=== PATIENT | male | born 1985 | race Caucasian/White ===

== ENCOUNTER → 2025-04-01 08:43 | Outpatient (BNVA) | payer OTHER, SELFPAY | PROVIDERS: PCP Family Medicine; Visit Provider Family Medicine | DX: K57.90 Diverticulosis of intestine, part unspecified, without perforation or abscess without bleeding (principal); I10 Essential (primary) hypertension | CPT/HCPCS: 80053; 80061; 83036; 84439; 84443; 85025 ==

== ENCOUNTER 2025-04-23 11:24 | Outpatient (CLI) | payer MEDICAID, SELFPAY ==
--- NOTE | 2025-04-23 12:30 | CT_ITS ---
WS: [id number] CT ABDOMEN PELVIS TECHNIQUE: Contrast-enhanced CT of the abdomen and pelvis with coronal and sagittal reformatted images. CLINICAL INFORMATION: diverticulitis COMPARISON: None. DLP: 1409.[address] scans at [facility] use at least one of these dose optimization techniques: automated exposure control; mA and/or kV adjustment per patient size (includes targeted exams where dose is matched to clinical indication); or iterative reconstruction. FINDINGS: Diffuse circumferential thickening of the sigmoid colon with mild surrounding induration compatible with acute diverticulitis. Numerous sigmoid diverticuli. Recommend follow-up to resolution. Hepatomegaly. Fatty liver. Normal GE junction. Adrenal glands are normal. No hydronephrosis in either kidney. 2.1 cm renal cyst upper pole RIGHT kidney. Normal pancreatic parenchymal enhancement. Normal spleen. Adrenal glands are normal. No hydronephrosis in either kidney. Normal portal vein and splenic vein. Tiny fat-containing umbilical hernia. Fat-containing inguinal hernias. Normal appendix in the RIGHT lower quadrant. CT/CT abdomen pelvis w con* [id number] IMPRESSION: 1. Diffuse circumferential thickening of the sigmoid colon with mild surround ing induration compatible with acute diverticulitis. No abscess or fluid collec tion. Recommend follow-up to resolution. 2. Fatty liver. Mild hepatomegaly. 3. 2.1 cm RIGHT renal cyst upper pole.
[2025-04-23] MEDS: iohexol 350 mg/mL 500 mL Btl (per mL) PO (12:37)
[2025-04-23] MEDS: iohexol 350 mg/mL 500 mL Btl (per mL) IV (12:37)
== END 2025-04-23 11:25 | disposition home or self-care (01) ==
LOC: RAD 11:24
PROVIDERS: PCP Family Medicine; Visit Provider Family Medicine
DX: K57.32 Diverticulitis of large intestine without perforation or abscess without bleeding (principal); R10.9 Unspecified abdominal pain; R16.0 Hepatomegaly, not elsewhere classified; K76.0 Fatty (change of) liver, not elsewhere classified; N28.1 Cyst of kidney, acquired
CPT/HCPCS: 74177

== ENCOUNTER 2025-06-22 13:55 | Emergency (ER) | payer MEDICAID, SELFPAY ==
--- OUTSIDE RECORDS SUMMARY | 2025-06-17 05:26 | XMS_ITS | Encounter Summary ---
Author Organization [facility] Address [address] [place] [address] Care Team Providers Care Penciller Name Role Phone Unavailable Primary Care Provider Unavailabl e Reason for Visit * Auth/Cert (Routine) Specialty Diagnoses / Procedures Referred By Teresa t Referred To Contact Perioperative Diagnoses Colovesical fistula Diverticulitis Colovesical fistula; Diverticulitis Procedures MI LAPAROSCOPY COLECTOMY PARTIAL W/ANASTOMOSIS MI LAPS COLECTOMY PRTL W/COLOPXTSTMY LW ANAST MI LAPS COLECTMY PRTL W/COLOPXTSTMY LW ANAST W/CLST SIGMOID COLECTOMY HAND ASSISTED LAPAROSCOPIC SIGMOID COLECTOMY HAND ASSISTED LAPAROSCOPIC SIGMOID COLECTOMY HAND ASSISTED LAPAROSCOPIC Mukul Orozco MD [address] [address] Phone: tel: fax: [facility] Operating Room [address] [place] [address] Phone: tel: fax: Referral ID Status Reason Start Date Expiration Date Visits Re quested Visits Authorized [id number] 1 1 Encounter Details Date Type Department Care Team (Latest Contact Info) Description 06/17/2025 5:26 AM CDT - 06/18/2025 7:09 PM CDT Hospital Encounter [facility] 3B Surgical [address] [place] [address] Mukul Orozco MD [address] [address] Diverticulitis Discharge Disposition: Home or Self Care Social History Tobacco Use Types Packs/Day Years Used Date Smoking Tobacco: Former Cigarettes Smokeless Tobacco: Never Tobacco Cessation:Counseling Given: Not Answered Alcohol Use Standard Drinks/Week Comments Yes 0 (1 standard drink = 0.6 oz pur e alcohol) Rarely Feeling Safe Answer Date Recorded Are you in a relationship wi th someone who hurts you emotionally and/or physically? No 06/17/2025 Food Insecurity Answer Date Recorded Patient needs follow up regardin 06/12/2025 Transportation Needs Answer Date Record ed Patient needs follow up regardin 06/12/2025 Utility Needs Answer Date Recorded Patient needs follow up regardin 06/12/2025 Sex and Gender Information Value Date Recorded Sex Assigned at Not on file Legal Sex Male 1:16 PM CDT Gender Identity Not on file Sexual Orientation Not on file documented as of this encounter Last Filed Vital Signs Vital Sign Reading Time Taken Comments Blood Pressure 150/81 06/18/2025 9:04 AM CDT Pulse 82 06/18/2025 9:04 AM CDT Temperature 36.2 C (97.2 F) 06/18/2025 9:04 AM CDT Respiratory Rate 13 06/18/2025 9:04 AM CDT Oxygen Saturation 95% 06/18/2025 9:04 AM CDT Inhaled Oxygen Concentration - - Weight 145.7 kg (321 lb 3.4 oz) 06/18/2025 4:16 AM CDT Height 175.3 cm (5' 9 ) 06/17/2025 5:44 AM CDT Body Mass Index 47.43 06/17/2025 5:44 AM CDT documented in this encounter Discharge Summaries * Arelis Matt NP - 06/20/2025 9:27 AM CDT Patient: Martínez Chinchilla / 40 y.o. / male : 1985 Admit date: 06/17/2025 Discharge date: 06/18/2025 Final Diagnosis: Chronic diverticulitis with colovesical fistula Secondary diagnoses and conditions treated: Active Hospital Problems Diagnosis s/p lap sigmoid colectomy 06/17/2025 for chronic Diverticulitis with colovesical fistula Colovesical fistula Resolved Hospital Problems No resolved problems to display. Attending Physician: Dr. Mukul Orozco, Colorectal Surgery Procedures Performed: laparoscopic sigmoid resection Hospital Course: The patient was taken to the operating room on the day of admission where he underwent the above procedure, which he tolerated well. Postoperatively he was taken to the PACU and thenthe floor where he recovered uneventfully. he was able to quickly advance his diet, and had his pain well controlled, first on IV pain medication and then transitioned to PO pain medication. At the time of discharge the patient is able to ambulate without assistance, he is voiding urine without difficulty, demonstrating appropriate bowel function, tolerating his diet, and has his pain well controlled with oral pain medication. Discharge Condition: improving. Disposition: home. Discharge medications: Medication List START taking these medications ciprofloxacin HCl 500 mg tablet Commonly known as: Cipro Take 1 Tablet (500 mg) by mouth 2 times daily for 5 days. Signed by: Dr. Cyndi Orozco Quantity: 10 Tablet Refills: 0 HYDROmorphone 2 mg tablet Commonly known as: DILAUDID Take 1 Tablet (2 mg) by mouth every 4 hours as needed for Pain. Max Daily Amount: 12 mg Signed by: Dr. Cyndi Orozco Quantity: 20 Tablet Refills: 0 Narcan 4 mg/actuation Silas, Non-Aerosol EMERGENCY USE ONLY: Administer 1 spray (4 mg) in one nostril one time. May repeat in alternating nostrils every 2-3 min until responsive or EMS arrives. Signed by: Dr. Cyndi Orozco Quantity: 2 Each Refills: 3 Generic drug: naloxone CHANGE how you take these medications metroNIDAZOLE 500 mg tablet Commonly known as: FLAGYL What changed: how much to take how to take this when to take this additional instructions Take 1 Tablet (500 mg) by mouth 3 times daily for 5 days. Signed by: Dr. Cyndi Orozco Quantity: 15 Tablet Refills: 0 CONTINUE taking these medications amLODIPine 10 mg tablet Commonly known as: NORVASC Take 1 Tablet by mouth daily. Refills: 0 CARVEDILOL ORAL Take 12.5 mg by mouth 2 times daily. Refills: 0 cloNIDine HCL 0.1 mg tablet Commonly known as: CATAPRES Take 0.1 mg by mouth 2 times daily as needed for Blood Pressure. Refills: 0 dicyclomine 10 mg capsule Commonly known as: BENTYL Take 1 Capsule (10 mg) by mouth 4 times daily as needed (abdominal pain). Signed by: Dr. Rick Marshall Quantity: 240 Capsule Refills: 3 hydroCHLOROthiazide 25 mg tablet Take 1 Tablet by mouth daily. Refills: 0 lisinopriL 40 mg tablet Commonly known as: PRINIVIL Take 1 Tablet by mouth daily. Refills: 0 ondansetron 4 mg Tablet, Rapid Dissolve Commonly known as: ZOFRAN ODT Take 1 Tablet (4 mg) by mouth every 6 hours as needed for Nausea/Emesis. Dissolve tablet on top of tongue, then swallow with saliva. Signed by: Dr. Cyndi Orozco Quantity: 6 Tablet Refills: 0 STOP taking these medications neomycin 500 mg tablet Commonly known as: MYCIFRADIN sodium, potassium and magnesium SULFATES 17.5-3.13-1.6 gram Recon Soln Commonly known as: Suprep Bowel Prep Kit Where to Get Your Medications These medications were sent to [address] [address] Hours: Tuesday - Tuesday: 7 am - 9 pm; Tuesday - Tuesday: 8 am - 4 pm HYDROmorphone 2 mg tablet Narcan 4 mg/actuation Silas, Non-Aerosol These medications were sent to [address] [address] [address] ciprofloxacin HCl 500 mg tablet metroNIDAZOLE 500 mg tablet Patient instructions: 1. Discharge to home 2. Follow-up [address] Orozco 3. May shower without restrictions. 4. Routine wound care/teach wound care if applicable. 5. Activity no restrictions and no lifting greater than 10 lbs 6. Prescription on chart. Please give to patient. 7. Call if temperature is greater than 101.5, severe pain, nausea, vomiting, wound drainage, questions or concerns. 8. Diet: No restriction. Signed: Arelis Matt NP 06/20/2025, 9:27 AM Cosigned by Mukul Orozco MD at 06/20/2025 9:29 AM CDT documented in this encounter Discharge Instructions * Discharge Instructions* Carter Hassan RN - 06/17/2025 7:54 AM CDT Post-Operative Discharge Instructions If you feel you are experiencing a medical emergency - call 911 or present immediately to the nearest Emergency Department. You will need a cystogram 10 days post op. Someone will contact you to schedule this. Please follow up with RUBY Thompson in 3 weeks, please call her office at to schedule your appointment. Typically follow up appointments are scheduled as in person visits, but if you feel that your appointment could be handled over the phone or by video chat please contact our office and we can make those arrangements. The [employer] jamarcus can also allow you to send inquiries directly to us as well as submit pictures of wounds, etc. Often the jamarcus is the most efficient way to each our healthcare team. Ifyou don't have it already please search your jamarcus store for [employer]. KEEP IN TOUCH WITH [employer] Please consider using [email or web address] to communicate with Dr. Orozco's office. Messages are received in real time by the nurse as fast, or faster, than phone messages, and you may expect a prompt reply. DIET Return to your usual diet. It is normal not to have an appetite right after surgery - as long as you are tolerating liquids and staying hydrated, your desire for solid food will return in a few days. BOWEL FUNCTION Bowel movements should return a day or two after surgery. Pain medication can cause constipation. To avoid abdominal discomfort, take Metamucil 1 TBSP by mouth every day starting two days after surgery if no bowel movement (BM) has occured. If this is not effective, take Milk of Magnesia 1 TBSP every 8 hours until BM occurs. Call if the above does not produce results. ACTIVITY Avoid laying in bed, walk around! - this will help decrease the postoperative discomfort. Do not lift, push, hand assembler for puller over 10 pounds May take a shower or sponge bath, no soaking in a tub, pool or hot tub May return to work/school when you feel like you can adequately and safely do your job - usually about 1 week for most occupations unless heavy strenuous lifting is required. Do not drive while taking pain medication. WHEN TO CALL Dr. Orozco @ If fever > 101.5 F OR shaking chills. If your incisions develop spreading redness, come apart, or begin to drain brown or green fluid. Persistent nausea & vomiting that last more than a few hours and unable to keep liquids down. Bleeding around incision. ( a small amount of thin blood tinged fluid is to be expected) Shortness of breath, leg(s) painful when walking or standing, leg(s) swelling or discolored. Severe constipation. WOUND CARE No special wound care is required It is OK to wash the incision(s) gently with soap and water but do not scrub AFTER HOURS Prescriptions are not refilled after business hours. If you are in need of additional medications, call the office on the next business day at [phone]. There is a physician on-call after hours for emergency reasons only. DO NOT SMOKE AND AVOID SECOND-HAND SMOKE. Tobacco smoke can delay the healing process by decreasingthe oxygen supply to your wound, & may increase your risk of infection. Smoking irritates the breathing passages and increases the risk of pneumonia, bronchitis, asthma and risk of blood clots. * Attachments The following attachments cannot be sent through Care Everywhere. * Bowel Resection: Open: Post op (Nepalese) * Diverticulitis (Nepalese) * Hydromorphone (Nepalese) documented in this encounter Medications at Time of Discharge HYDROmorphone (DILAUDID) 2 mg tabletIndication s:Diverticulitis Take 1 Tablet (2 mg) by mouth every 4 hours as needed for Pain. Max Daily Amount: 12 mg 20 Tablet 06/18/2025 6:53 PM CDT 06/18/2025 naloxone (NARCAN) 4 mg/spray Silas, Non-Aerosol EMERGENCY USE ONLY: Administer 1 spray (4 mg) in one nostril one time. May repeat in alternating nostrils every 2-3 min until responsive or EMS arrives. 2 Each 3 06/18/2025 6:53 PM CDT 06/18/2025 ciprofloxacin HCl (Cipro) 500 mg tablet Take 1 Tablet (500 mg) by mouth 2 times daily for 5 days. 10 Tablet 06/18/2025 5 metroNIDAZOLE (FLAGYL) 500 mg tablet Take 1 Tablet (500 mg) by mouth 3 times daily for 5 days. 15 Tablet 06/18/2025 5 ondansetron (ZOFRAN ODT) 4 mg Tablet, Rapid Dissolve Take 1 Tablet (4 mg) by mouth every 6 hours as needed for Nausea/Emesis. Dissolve tablet on top of tongue, then swallow with saliva. 6 Tablet 06/06/2025 amLODIPine (NORVASC) 10 mg tablet Take 1 Tablet by mouth daily. 04/30/2025 hydroCHLOROthiaz sushila 25 mg tablet Take 1 Tablet by mouth daily. 04/01/2025 lisinopriL (PRINIVIL) 40 mg tablet Take 1 Tablet by mouth daily. 04/30/2025 CARVEDILOL ORAL Take 12.5 mg by mouth 2 times daily. dicyclomine (BENTYL) 10 mg capsule Take 1 Capsule (10 mg) by mouth 4 times daily as needed (abdominal pain). 240 Capsule 3 05/06/2025 cloNIDine HCL (CATAPRES) 0.1 mg tablet Take 0.1 mg by mouth 2 times daily as needed for Blood Pressure. documented as of this encounter Progress Notes * Carter Hassan RN - 06/18/2025 6:49 PM CDT Martínez Chinchilla will be discharged via wheelchair to home. Martínez Chinchilla is accompanied by spouse and will be transported via private vehicle. Went over all discharge teaching, kline care, dressing changes where ARINA drain was, and all questions answered at this time. * Mukul Orozco MD - 06/18/2025 6:32 AM CDT Colon & Rectal Surgery Patient seen and examined. No complaints. VS stable, I/O ok Soft, appropriately tender, ND, wound ok A/P Doing well POD#1 -Discussed operative findings, -OOB, ambulate, -Regular diet, Follow ERAS protocol, keep kline for procedure Current hospital problem list: Active Hospital Problems Diagnosis s/p lap sigmoid colectomy 06/17/2025 for chronic Diverticulitis with colovesical fistula Colovesical fistula Resolved Hospital Problems No resolved problems to display. Mukul Orozco M.D. Colon & Rectal Surgery Office: * Hailee Azar PHARMACIST - 06/17/2025 3:05 PM CDT Pharmacy Anticoagulation Monitoring Service - Clinical Pharmacy Initial Note A/P- Martínez Chinchilla is a 40 y.o. male being treated with enoxaparin for DVT prophylaxis. We have changed therapy from enoxaparin 40 mg SQ every 24 hours to enoxaparin 70 mg SQ every 24 hours perfacility anticoagulation protocol for body weight > 100 kg (dose = 0.5 mg/kg/dose) and BMI >/- 40 kg/m2. Pharmacy will follow-up with the scheduling of labs as described in the anticoagulant mon itoring protocol (if not already ordered) which has been cosigned and is available for review in the progress notes section of this chart. Pharmacy will leave follow-up notes for prophylactic anticoagulation only if dosage adjustments are made. Ht Readings from Last 1 Encounters: 06/17/25 5' 9 (1.753 m) Wt Readings from Last 1 Encounters: 06/17/25 (!) 146 kg (321 lb 12.8 oz) Lab Results Component Value Date HGB 15.4 06/17/2025 HCT 44.3 06/17/2025 WBC 12.7 (H) 06/17/2025 PLT 288 06/17/2025 CREAT 1.06 06/17/2025 Thank you for involving us in the care of this patient. SHANNAN Hector * Hailee Azar PHARMACIST - 06/17/2025 3:05 PM CDT RX ANTICOAG MONITORING ORDERS Pharmacy to order, review, and report clinically significant changes in lab per [facility] Anticoagulation Protocol as follows: Orders for dosing changes and follow-up labs will be signed ???Per Protocol?? in Epic. The name ofthe provider signed on the follow-up orders for cosignature will be assigned as follows: Orders placed by members of the Guard Captain or Hospitalist physician groups: If the original ordering provider is no longer the attending physician for the patient, responsibility for cosignature of the follow-up medication orders and labs will transfer from the original ordering provider to the current attending physician. Orders placed by any other provider: Responsibility for cosignature of the follow-up medication orders and labs will remain with the original ordering provider of the anticoagulant order. Pharmacy will order appropriate labs as indicated by the [facility] Anticoagulation Monitoring policy located on [facility] intranet, unless already ordered. The medications that will be monitored include (but are not limited to): Low molecular weight heparin, heparin, and fondaparinux Direct Thrombin Inhibiors (argatroban, bivalirudin dabigatran lepirudin) Warfarin Direct oral anticoagulants (rivaroxaban, apixaban, edoxaban) Pharmacy will order labs for patients not on a heparin protocol, warfarin protocol, or anticoagulant protocol. Nursing to order labs required as indicated by those protocols. This policy is in compliance with the JCAHO National Patient Safety Goal 3E and authorized by the [facility] Pharmacy and Therapeutics Committee. Cosigned by Mukul Orozco MD at 06/17/2025 4:06 PM CDT documented in this encounter H&P Notes * Mukul Orozco MD - 06/17/2025 6:21 AM CDT I have reviewed the last H&P and examined the patient today and there are no changes. documented in this encounter OR Notes * Operative Report - Mukul Orozco MD - 06/17/2025 10:46 AM CDT Preoperative diagnosis: Chronic diverticulitis with colovesical fistula Postoperative diagnosis: same Procedure(s) performed: 1. Laparoscopic sigmoid resection with end-to-end double-stapled anastomosis 2. Laparoscopic complete mobilization of the splenic flexure 3. Rigid proctoscopy Surgeon: Mukul Orozco M.D. Comic Writer: RUBY Thompson FOOD BAGGING MACHINE OPERATOR JUSTIFICATION: The use of an advanced physician practice administrator was required due to the complexity of the procedure and lack of similarly qualified assistants. Comic Writer tasks include: Positioning, prepping & draping, retraction, general surgical assistance including tying, suturing, suction, etc, wound closure and dressing application, EEA stapler operation, and camera operation Anesthesia: General endotracheal anesthesia EBL: 150ml Specimens: sigmoid colon Findings: marked chronic diverticulitis with adherence to the posterior bladder, distinct tract notidentified. This procedure is considered infected at the time of surgery by the attending physician. Level(s) considered infected: peritoneal cavity Other features of infection observed: Phlegmon Details of procedure: After obtaining informed consent the patient was taken to the operating room,placed in a supine position and then underwent induction of general anesthesia. he received antibiotics preoperatively and then was positioned in a low modified lithotomy position with the right arm tucked. All pressure points were well padded. A kline catheter was placed and the abdomen was prepped and draped in standard, sterile surgical fashion. An 8cm lower midline incision was created with a skin knife and electrocautery was used to dissect down to the fascia which was carefully opened. With one hand inside the abdomen to provide a guide and backdrop and additional 5mm port was placed in the supraumbilical position. The hand port was placed in the lower incision and a 5mm 30 degree camera was inserted into the abdomen. The abdomen was inspected and findings as above were encountered. An additional 5mm working port was placed under direct vision in the left lower quadrant. The sigmoid colon was grasped through the hand port and retracted laterally. The white line of Toldt was incised along its length toward the spleen. The lateral attachments of the colon were taken down with a combination of Ligasure and blunt dissection. I then changed focus to the transverse colonand entered the lesser sack in the plane between the greater omentum and the colon. This plane was developed towards the splenic flexure., completely mobilizing the flexure and left colon. Attention was then turned toward the sigmoid colon. Lateral attachments of sigmoid were carefully dissected off the pelvic sidewall. The left ureter was identified and carefully preserved. The mesentery of the left colon was then divided. The ANDREEA and IMV were divided with the LigaSure and then an endoloop was placed over the stalks. The peritoneum overlying the lateral aspects of the distal sigmoid and upper rectum were incised with electrocautery and LigaSure parallel to the bowel. The upper rectum, identified by the absence of tinea coli was identified. The mesorectum at this point was dissected bluntly off the bowel and the mesorectum was divided with judicious use of Ligasure and ties where appropriate. The bowel was then transected at the top of the rectum using a green load in a 35mm curvilinear stapler. The pelvis was observed and irrigated and found to be hemostatic The proximal resection margin was chosen at an area in the descending/proximal sigmoid which would reach without tension to the top of the rectum, had and excellent blood supply, and was clear of inflammatory changes. The bowel was divided and the specimen passed off the field. A 2-0 proline pursestring was placed and the anvil of a 31 mm EEA stapler was passed, per anus to the proximal end of the rectal stump. The spike was advanced at the center of the staple line and coupled with the anvil. The bowel was checked for twisting and was found to be appropriately positioned. The stapler was then closed and fired, resulting in two complete tissue rings. A proctoscope was then inserted per anusand the rectum and colon was insulated while submerged in saline. No leak was observed during the air test. Rigid proctoscopy identified an intact, hemostatic anastomosis. Feeling comfortable with a tension free, well vascularized anastomosis we elected to close. The abdomen was then irrigated, the laparoscopic port sites were removed and the operative field was examined, and hemostasis was confirmed. The fascia was closed with running #1 PDS suture and the wounds were then irrigated. The skin was closed with running 4-0 vycril and sealed with Dermabond. The patient tolerated the procedure well and all sponge and instrument counts were correct at the conclusion. Signed: Mukul Orozco M.D. documented in this encounter Miscellaneous Notes * Care Plan - Carter Hassan RN - 06/18/2025 5:37 PM CDT Shift Summary Pain management interventions with oxyCODONE and HYDROmorphone resulted in marked improvement in comfort levels. No evidence of infection or complications at drain and catheter sites, with stable output and appearance documented. Safety measures were maintained throughout the shift, with no falls or injuries reported and independent mobility observed. All scheduled and PRN medications except cloNIDine HCL were administered as ordered, with one refusal documented. Overall, comfort improved and safety was maintained during the shift. Verbalizes/displays acceptable comfort level or baseline comfort level: Pain at rest decreased steadily from 7 to 1 over the shift, with relief verbalized after administration of oxyCODONE and HYDROmorphone; pain with activity also decreased from 8 to 3 after interventions. Infection Risk/Actual: Infection prevention, control, or resolution by discharge: No abnormal findings noted at drain and catheter sites, with clean, dry dressings and clear, straw-colored urine; no complaints or changes in tolerance documented. Safety/Fall: Absence of fall, injury, harm during hospitalization: No falls or injuries occurred, and safety checks were completed with independent mobility and no assistive devices required. * Care Plan - Nica Velez RN - 06/18/2025 3:42 PM CDT Problem: Discharge Planning Goal: Identify discharge needs upon admission and through discharge Description: Clinical documentation reviewed. Cm spoke with pt and at bedside, states he has a PCP Dr Carreno at [place]. States he does not need HHC at [place]. Plans to DC home with when medically ready. Cm will follow for DC needs. Comprehensive Discharge Planning Risk Assessment was completed. Documentation Related to CDPA score CDPA Documentation Ambulation: independent Transferring: independent Toileting: independent Bathing: independent Dressing: independent Eating: independent Communication: understands/communicates w/o difficulty Weight-Bearing Status: no weight-bearing restrictions Living Arrangements: Lives with spouse/significant other Total Score of 9 or below does not identify immediate needs for discharge. CDPA Risk Score Total Score: 0 Criteria that do not apply: Self-reported walking limitation Disability Age Prior Living Status Please place consult if needs for discharge are identified. Care Management will continue to follow for discharge planning. Outcome: Progressing documented in this encounter Plan of Treatment Upcoming Encounters Date Type Department Care Team (Late st Contact Info) Description 07/03/2025 7:30 AM CDT Appointment [facility] Imaging Services [address] [place] [address] Arelis Matt NP [address] [address] Zoie Giles FNP [address] [place] [address] 07/12/2025 9:45 AM CDT Office Visit [facility] Gen Spec Surg [address] [id number] Arelis Matt NP [address] [id number] documented as of this encounter Procedures Procedure Name Priority Date/Time Associated Diagnosis Comments TELEMETRY REPORT 06/19/2025 2:31 PM CDT CBC WITH DIFFERENTIAL Routine 06/18/2025 4:37 AM CDT BASIC METABOLIC PANEL Routine 06/18/2025 4:37 AM CDT POC GLUCOSE Routine 06/17/2025 9:37 AM CDT PATHOLOGY Pathology 06/17/2025 8:31 AM CDT Colovesical fistula Diverticulitis MI ANRCT XM SURG REQ ANES GENERAL SPI/EDRL DX 06/17/2025 7:20 AM CDT Colovesical fistula Diverticulitis MI LAPS MOBLJ SPLENIC FLXR PFRMD W/PRTL COLECTOMY 06/17/2025 7:20 AM CDT Colovesical fistula Diverticulitis MI LAPS COLECTMY PRTL W/COLOPXTSTMY LW ANAST W/CLST 06/17/2025 7:20 AM CDT Colovesical fistula Diverticulitis MI LAPS COLECTOMY PRTL W/COLOPXTSTMY LW ANAST 06/17/2025 7:20 AM CDT Colovesical fistula Diverticulitis MI LAPAROSCOPY COLECTOMY PARTIAL W/ANASTOMOSIS 06/17/2025 7:20 AM CDT Colovesical fistula Diverticulitis CBC WITHOUT DIFFERENTIAL Stat 06/17/2025 6:16 AM CDT BASIC METABOLIC PANEL Routine 06/17/2025 6:16 AM CDT TYPE AND SCREEN Stat 06/17/2025 6:12 AM CDT VERIFICATION BLOOD GROUP Stat 06/17/2025 6:08 AM CDT documented in this encounter Results * TELEMETRY REPORT (06/19/2025 2:31 PM CDT) us Provider Scanning ECG ORDERABLES Final Result * (ABNORMAL) BASIC METABOLIC PANEL (06/18/2025 4:37 AM CDT) SODIUM 136 136 - 145 mmol/L 06/18/2025 6:01 AM CDT [facility] POTASSIUM 4.2 3.5 - 5.1 mmol/L 06/18/2025 6:01 AM CDT [facility] CHLORIDE 101 98 - 107 mmol/L 06/18/2025 6:01 AM [facility] CO2 26 22 - 29 mmol/L 06/18/2025 6:01 AM [facility] CALCIUM 8.1(L) 8.6 - 10.0 mg/dL 06/18/2025 6:01 AM T [facility] BUN 13 6 - 20 mg/dL 06/18/2025 6:01 AM [facility] CREATININE 0.93 0.67 - 1.17 mg/dL 06/18/2025 6:01 AM [facility] GLUCOSE 186(H) 74 - 99 mg/dL 06/18/2025 6:01 AM [facility] GFR >60 >=60 mL/min/1.7 3 sq meter 06/18/2025 6:01 AM [facility] Comment:eGFR calculated with 2020 CKD-EPI equation. Vegetarian diet, extremely high or low muscle mass, and may affect results. Cystatin C with Glomerular Filtration Rate is a suitable alternative for these patients. ANION GAP 9 9 - 20 mmol/L 06/18/2025 6:01 AM [facility] Blood Venipuncture / Unknown 06/18/2025 4:37 AM CDT 06/18/2025 5:24 AM CDT us Mukul Orozco MD CHEMISTRY ORDERABLES Final Resu lt [facility] CLIA # [id number] [address] [place] [address] * (ABNORMAL) CBC WITH DIFFERENTIAL (06/18/2025 4:37 AM CDT) WBC 11.1(H) 4.5 - 11.0 K/uL 06/18/2025 5:55 AM CDT [facility] RBC 4.88 4.60 - 6.20 M/uL 06/18/2025 5:55 AM [facility] HEMOGLOBIN 14.2 14.0 - 18.0 g/dL 06/18/2025 5:55 AM [facility] HEMATOCRIT 41.8 41.0 - 53.0 % 06/18/2025 5:55 AM [facility] MCV 85.7 84.0 - 103.0 fL 06/18/2025 5:55 AM [facility] MCH 29.1 27.0 - 34.0 pg 06/18/2025 5:55 AM [facility] MCHC 34.0 30.0 - 35.0 g/dL 06/18/2025 5:55 AM [facility] PLATELETS 244 140 - 440 K/uL 06/18/2025 5:55 AM [facility] MPV 9.4 8.9 - 12.8 fL 06/18/2025 5:55 AM [facility] RDW 13.4 11.0 - 14.5 % 06/18/2025 5:55 AM [facility] RDW-STDEV 41.8 37.0 - 54.0 fL 06/18/2025 5:55 AM [facility] NEUTROPHILS 69 42 - 75 % 06/18/2025 5:55 AM [facility] LYMPHOCYTES 20(L) 24 - 44 % 06/18/2025 5:55 AM [facility] MONOCYTES 9 2 - 10 % 06/18/2025 5:55 AM [facility] EOSINOPHILS 2 0 - 7 % 06/18/2025 5:55 AM [facility] BASOPHILS 0 0 - 1 % 06/18/2025 5:55 AM [facility] IMMATURE GRANULOCYTES 0 0 - 2 % 06/18/2025 5:55 AM [facility] NEUTROPHIL ABSOLUTE 7.66 2.00 - 8.00 K/uL 06/18/2025 5:55 AM [facility] LYMPHOCYTE ABSOLUTE 2.22 1.20 - 4.00 K/uL 06/18/2025 5:55 AM CDT [facility] MONOCYTE ABSOLUTE 0.95(H) 0.10 - 0.60 K/uL 06/18/2025 5:55 AM CDT [facility] EOSINOPHIL ABSOLUTE 0.20 0.00 - 0.70 K/uL 06/18/2025 5:55 AM CDT [facility] BASOPHILS ABSOLUTE 0.05 0.00 - 0.20 K/uL 06/18/2025 5:55 AM CDT [facility] IMMATURE GRANULOCYTES ABSOLUTE 0.05 0.00 - 0.10 K/uL 06/18/2025 5:55 AM CDT [facility] SMEAR REVIEWED: NN - No Action Needed 06/18/2025 5:55 AM CDT [facility] Blood Venipuncture / Unknown 06/18/2025 4:37 AM CDT 06/18/2025 5:25 AM CDT Mukul Orozco MD HEMATOLOGY ORDERABLES Final Res ult [facility] CLIA # [id number] [address] [address] * (ABNORMAL) POC GLUCOSE (06/17/2025 9:37 AM CDT) GLUCOSE POC 127(H) 74 - 99 mg/dL 06/17/2025 9:37 AM CDT [facility] SPECIMEN SOURCE, GLUCOSE POC Capillary 06/17/2025 9:37 AM CDT [facility] Blood, whole 06/17/2025 9:37 AM CDT 06/17/2025 9:45 AM CDT Mukul Orozco MD POINT OF CARE TESTING Final Res ult [facility] CLIA # [id number] [address] [place] [id number] * PATHOLOGY (06/17/2025 8:31 AM CDT) CASE REPORT Surgical Pathology Report Case: [id number] Authorizing Provider: Mukul Orozco MD Collected: 06/17/2025 08:31 AM Ordering Location: [facility] Received: 06/17/2025 10:09 AM Operating Room Pathologist: Cristian Thompson MD Specimen: Colon, sigmoid 2:05 PM CDT [facility] FINAL DIAGNOSIS A. Sigmoid colon, segmental resection - Diverticular disease with perforated acute diverticulitis and mural abscess - Viable resection margins - 2 benign lymph nodes Cristian Thompson MD [id number] 2:05 PM CDT [facility] at 1405 CDT GROSS DESCRIPTION A. Received in a container of formalin labeled Amor -sigmoid colon is a 34 cm in length by 4.4 cm in diameter segment of sigmoid colon/proximal rectum. At the rectosigmoid junction is an approximately 8 cm in greatest dimension area of dense adhesions and tortuous bowel. The remaining serosa is oakes-pink, smooth and glistening. Opening reveals a strictured lumen correlating with the previously described rectosigmoid junction. The mucosa is diffusely oakes-pink, smooth and glistening with grossly unremarkable mucosal folds and is serially sectioned to reveal a 2.0 cm in greatest dimension perforated diverticulum within the area of serosal adhesions. There is significant submucosal inflammatory debris and a diffusely thickened bowel wall. No discrete masses or polyps are identified. The pericolonic fat contains 2 identifiable enlarged lymph nodes. Product Steward sections are submitted as follows: A1-proximal margin, en face A2-distal margin, en face B2-E7-ejid-thickness cross-section of perforated diverticulum, bisected (bisected point inked blue) A5-thickened bowel wall with abscess A6-enlarged lymph nodes, 2 Grossed by: Arelis Cornejo MS, PA (ASCP) 2:05 PM CDT [facility] OPERATIVE PROCEDURE 1: SIGMOID COLECTOMY HAND ASSISTED LAPAROSCOPIC 2: SPLENIC FLEXURE MOBILIZATION LAPAROSCOPIC 3: PROCTOSCOPY 5 2:05 PM CDT [facility] CLINICAL INFORMATION Colovesical fistula; Diverticulitis N32.1-Colovesical fistula K57.92-Diverticulitis 5 2:05 PM CDT [facility] COMMENT The [employer] voice-activated dictation system may have been used in the creation of this report. Inherent to this system is the possibility of errors in syntax, grammar, punctuation, or other areas that could impact interpretation. If there are interpretive questions about the report, please contact the performing pathologist. Unless gross only is specified in the diagnosis, the microscopic examination substantiates the above cited diagnosis. The performance characteristics of all immunohistochemical stains cited in this report (if any) were determined by the Diagnostic Immunohist[facility] Laboratory of [facility] in compliance with CLIA'88 regulations. Some of these tests rely on the use of analyte specific reagents and are subject to specific labeling requirements by the FDA. All controls show appropriate reactivity. This testing was developed by the [facility]ohist[facility] Laboratory of [facility]. It has not been cleared or approved by the FDA. The FDA has determined that such clearance or approval is not necessary. 2:05 PM CDT [facility] Tissue SIGMOID COLON STRUCTURE / Unknown Collection / Unknown 06/17/2025 8:31 AM CDT 06/17/2025 10:09 AM CDT Mukul Orozco MD PATHOLOGY/CYTOLOGY ORDERABLES F inal Result [facility] CLIA # [id number] [address] [place] [address] * (ABNORMAL) BASIC METABOLIC PANEL (06/17/2025 6:16 AM CDT) SODIUM 137 136 - 145 mmol/L 06/17/2025 6:55 AM CDT [facility] POTASSIUM 3.8 3.5 - 5.1 mmol/L 06/17/2025 6:55 AM CDT [facility] CHLORIDE 101 98 - 107 mmol/L 06/17/2025 6:55 AM T [facility] CO2 24 22 - 29 mmol/L 06/17/2025 6:55 AM CDT [facility] CALCIUM 9.0 8.6 - 10.0 mg/dL 06/17/2025 6:55 AM T [facility] BUN 17 6 - 20 mg/dL 06/17/2025 6:55 AM T [facility] CREATININE 1.06 0.67 - 1.17 mg/dL 06/17/2025 6:55 AM T [facility] GLUCOSE 119(H) 74 - 99 mg/dL 06/17/2025 6:55 AM T [facility] GFR >60 >=60 mL/min/1.7 3 sq meter 06/17/2025 6:55 AM T [facility] Comment:eGFR calculated with 2020 CKD-EPI equation. Vegetarian diet, extremely high or low muscle mass, and may affect results. Cystatin C with Glomerular Filtration Rate is a suitable alternative for these patients. ANION GAP 12 9 - 20 mmol/L 06/17/2025 6:55 AM T [facility] Blood Venipuncture / Unknown 06/17/2025 6:16 AM CDT 06/17/2025 6:23 AM CDT us Mukul Orozco MD CHEMISTRY ORDERABLES Final Resu lt [facility] CLIA # [id number] [address] [place] [address] [place] [address] * (ABNORMAL) CBC WITHOUT DIFFERENTIAL (06/17/2025 6:16 AM CDT) WBC 12.7(H) 4.5 - 11.0 K/uL 06/17/2025 6:40 AM [facility] RBC 5.24 4.60 - 6.20 M/uL 06/17/2025 6:40 AM T [facility] HEMOGLOBIN 15.4 14.0 - 18.0 g/dL 06/17/2025 6:40 AM T [facility] HEMATOCRIT 44.3 41.0 - 53.0 % 06/17/2025 6:40 AM T [facility] MCV 84.5 84.0 - 103.0 fL 06/17/2025 6:40 AM T [facility] MCH 29.4 27.0 - 34.0 pg 06/17/2025 6:40 AM [facility] MCHC 34.8 30.0 - 35.0 g/dL 06/17/2025 6:40 AM [facility] PLATELETS 288 140 - 440 K/uL 06/17/2025 6:40 AM [facility] MPV 8.6(L) 8.9 - 12.8 fL 06/17/2025 6:40 AM [facility] RDW 13.4 11.0 - 14.5 % 06/17/2025 6:40 AM [facility] RDW-STDEV 41.5 37.0 - 54.0 fL 06/17/2025 6:40 AM [facility] Blood Venipuncture / Unknown 06/17/2025 6:16 AM CDT 06/17/2025 6:23 AM CDT us Mukul Orozco MD HEMATOLOGY ORDERABLES Final Res ult [facility] CLIA # [id number] [address] [place] [address] [place] [address] * TYPE AND SCREEN (06/17/2025 6:12 AM CDT) ABO GROUP A 06/17/2025 7:13 AM [facility] TYPE Negative 06/17/2025 7:13 AM CDT [facility] ANTIBODY SCREEN Negative 06/17/2025 7:13 AM CDT [facility] Blood Venipuncture / Unknown 06/17/2025 6:12 AM CDT 06/17/2025 6:20 AM CDT Mukul Orozco MD BLOOD BANK ORDERABLES Edited Re sult - Final Performing Organization Address City/[facility]/ZIP Co de Phone Number [facility] CLIA#[id number] [address] [place] [address], * VERIFICATION BLOOD GROUP (06/17/2025 6:08 AM CDT) ABO GROUP A 06/17/2025 7:09 AM CDT [facility] RH (D) TYPE Negative 06/17/2025 7:09 AM CDT [facility] [place] Blood Venipuncture / Unknown 06/17/2025 6:08 AM CDT 06/17/2025 6:14 AM CDT us Mukul Orozco MD BLOOD BANK ORDERABLES Final Res ult Performing Organization Address [facility] Co de Phone Number [facility] [place] CLIA#[id number] [address] [place] [address], documented in this encounter Visit Diagnoses Diagnosis s/p lap sigmoid colectomy 06/17/2025 for chronic Diverticulitis with colovesical fistula- Primary Diverticulitis of colon (without mention of hemorrhage) Colovesical fistula Intestinovesical fistula s/p lap sigmoid colectomy 06/17/2025 for chronic Diverticulitis with colovesical fistula Diverticulitis of colon (without mention of hemorrhage) Colovesical fistula Intestinovesical fistula documented in this encounter Admitting Diagnoses Diagnosis Diverticulitis Diverticulitis of colon (without mention of hemorrhage) Colovesical fistula Intestinovesical fistula documented in this encounter Administered Medications Inactive Administered Medications - up to 3 most recent administrations Medication Order MAR Action Action Date Dose Rate Site acetaminophen (TYLENOL) tablet 1,000 mg 1,000 mg, Oral, PRE-PROCEDURE ONCE, 1 dose, Starting on Tue06/17/25 at 0534, Until Tue06/17/25 at 0615, Routine, Pre-opIndications:Colovesical fistula,Diverticulitis Given 06/17/2025 6:15 AM CDT 1,000 mg acetaminophen (TYLENOL) tablet 650 mg 650 mg, Oral, EVERY 6 HOURS, First dose on Tue06/17/25 at 1800, Until Discontinued, Routine, Post-op - Floor Given 06/18/2025 12:19 PM CDT 650 mg Given 06/18/2025 5:59 AM CDT 650 mg Given 06/18/2025 12:09 AM CDT 650 mg alvimopan (ENTEREG) capsule 12 mg 12 mg, Oral, PRE-PROCEDURE ONCE, 1 dose, Starting on Tue06/17/25 at 0534, Until Tue06/17/25 at 0616, Routine, Pre-op, The ordering provider acknowledges review of the [employer] education on the benefits and risks of alvimopan? (see reference links above): YesIndications:Colovesical fistula,Diverticulitis Given 06/17/2025 6:16 AM CDT 12 mg alvimopan (ENTEREG) capsule 12 mg 12 mg, Oral, TWO TIMES DAILY, 14 doses, First dose on Tue06/18/25 at 0900, Last dose on Tue06/24/25 at 2100, Routine, Post-op - Floor, The ordering provider acknowledges review of the [employer] education on the benefits and risks of alvimopan? (see reference links above): Yes Given 06/18/2025 10:15 AM CDT 12 mg amLODIPine (NORVASC) tablet 10 mg 10 mg, Oral, DAILY, First dose on Tue06/17/25 at 1500, Until Discontinued, Routine, Previous Med: amLODIPine (NORVASC) 10 mg tablet - Orig Sig - Take 1 Tablet by mouth daily. Given 06/18/2025 10:13 AM CDT 10 mg Given 06/17/2025 3:03 PM CDT 10 mg carvediloL (COREG) tablet 12.5 mg 12.5 mg, Oral, TWO TIMES DAILY, First dose on Tue06/17/25 at 2100, Until Discontinued, Previous Med: CARVEDILOL ORAL - Orig Sig - Take 12.5 mg by mouth 2 times daily. Given 06/18/2025 10:15 AM CDT 12.5 m g Given 06/17/2025 9:42 PM CDT 12.5 mg celecoxib (CeleBREX) capsule 200 mg 200 mg, Oral, PRE-PROCEDURE ONCE, 1 dose, Starting on Tue06/17/25 at 0534, Until Tue06/17/25 at 0615, Routine, Pre-opIndications:Colovesical fistula,Diverticulitis Given 06/17/2025 6:15 AM CDT 200 mg cloNIDine HCL (CATAPRES) tablet 0.1 mg 0.1 mg, Oral, TWO TIMES DAILY, First dose on Tue06/17/25 at 2100, Until Discontinued, Routine, Previous Med: cloNIDine HCL (CATAPRES) 0.1 mg tablet - Orig Sig - Take 0.1 mg by mouth 2 times daily as needed for Blood Pressure. Given 06/17/2025 9:42 PM CDT 0.1 mg diphenhydrAMINE (BENADRYL) injection 12.5 mg 12.5 mg, IV, POST-PROCEDURE ONCE PRN, 1 dose, Starting on Tue06/17/25 at 0717, Until Tue06/17/25 at 1011, Nausea/Emesis, Routine, PACU Given 06/17/2025 10:11 AM CDT 12.5 mg enoxaparin (LOVENOX) injection 70 mg 70 mg (rounded from 73 mg = 0.5 mg/kg 146 kg), subCUT, DAILY, First dose on Tue06/18/25 at 0600, Until Discontinued, Routine, Indication: Prophylaxis of VTE Given 06/18/2025 5:59 AM CDT 70 mg Abdominal Tissue fentaNYL PF (SUBLIMAZE) 50 mcg/mL injection 50 mcg 50 mcg, IV, POST-PROCEDURE Q 3 MINUTES PRN, 5 doses, Starting on Tue06/17/25 at 0717, Until Tue06/17/25 at 1436, Pain, Mild, Pain, Moderate, Routine, PACU Given 06/17/2025 10:36 AM CDT 50 mcg Given 06/17/2025 10:12 AM CDT 50 mcg Given 06/17/2025 9:34 AM CDT 50 mcg hydroCHLOROthiazide tablet 25 mg 25 mg, Oral, DAILY, First dose on Tue06/17/25 at 1500, Until Discontinued, Routine, Previous Med: hydroCHLOROthiazide 25 mg tablet - Orig Sig - Take 1 Tablet by mouth daily. Given 06/18/2025 10:13 AM CDT 25 mg Given 06/17/2025 3:03 PM CDT 25 mg HYDROmorphone (DILAUDID) tablet 2 mg 2 mg, Oral, EVERY 4 HOURS PRN, Starting on Tue06/18/25 at 1302, Until Tue06/18/25 at 2110, Pain (See admin instructions), Routine Given 06/18/2025 6:03 PM CDT 2 mg Given 06/18/2025 1:18 PM CDT 2 mg HYDROmorphone (PF) (DILAUDID) injection 0.5 mg 0.5 mg, IV, POST-PROCEDURE Q 5 MINUTES PRN, 5 doses, Starting on Tue06/17/25 at 0717, Until Tue06/17/25 at 1018, Pain, Severe, Routine, PACU Given 06/17/2025 10:18 AM CDT 0.5 mg Given 06/17/2025 10:07 AM CDT 0.5 mg Given 06/17/2025 9:59 AM CDT 0.5 mg HYDROmorphone (PF) (DILAUDID) injection 0.5 mg 0.5 mg, IV, POST-PROCEDURE Q 5 MINUTES PRN, 3 doses, Starting on Tue06/17/25 at 1119, Until Tue06/17/25 at 1436, Pain (See admin instructions), Routine Given 06/17/2025 1:26 PM CDT 0.5 mg Given 06/17/2025 11:22 AM CDT 0.5 mg HYDROmorphone (PF) (DILAUDID) injection 1 mg 1 mg, IV, EVERY 2 HOURS PRN, Starting on Tue06/17/25 at 1448, Until Tue06/18/25 at 2110, Pain (See admin instructions), Routine, Post-op - Floor Given 06/18/2025 12:09 AM CDT 1 mg Given 06/17/2025 5:44 PM CDT 1 mg ketorolac (TORADOL) injection 10 mg 10 mg, IV, EVERY 6 HOURS, 8 doses, First dose on Tue06/18/25 at 0645, Last dose on Dottie 06/20/25 at 0000, Routine Given 06/18/2025 7:58 AM CDT 10 mg lactated ringers infusion IV, at 100 mL/hr, CONTINUOUS, Starting on Tue06/17/25 at 0545, Until Tue06/17/25 at 1448, Routine, Pre-op Continue from Pre-Op 06/17/2025 7:20 AM CDT 100 mL/hr New Bag 06/17/2025 6:54 AM CDT 100 mL/hr lactated ringers infusion IV, at 125 mL/hr, POST-PROCEDURE CONTINUOUS, Starting on Tue06/17/25 at 0730, Until Tue06/18/25 at 1302, Routine, PACU [facility] 06/17/2025 10:15 AM CDT 125 mL/hr lisinopriL (PRINIVIL) tablet 40 mg 40 mg, Oral, DAILY, First dose on Tue06/17/25 at 1500, Until Discontinued, Routine, Previous Med: lisinopriL (PRINIVIL) 40 mg tablet - Orig Sig - Take 1 Tablet by mouth daily. Given 06/18/2025 10:13 AM CDT 40 mg Given 06/17/2025 3:03 PM CDT 40 mg magnesium OXIDE (MAG-OX) tablet 400 mg 400 mg, Oral, DAILY, First dose on Tue06/17/25 at 1500, Until Discontinued, Routine, Post-op - Floor Given 06/18/2025 10:15 AM CDT 400 mg Given 06/17/2025 3:03 PM CDT 400 mg metroNIDAZOLE (FLAGYL) IVPB 500 mg 500 mg, IV, PRE-PROCEDURE ONCE, 1 dose, Starting on Tue06/17/25 at 0534, Until Tue06/17/25 at 0725, Routine, Pre-op, Antibiotic Indication: Surgical prophylaxisIndications:Colovesical fistula,Diverticulitis [facility] 06/17/2025 6:55 AM CDT 500 mg 200 mL/h r naloxone (NARCAN) 0.4 mg/mL injection 0.1-0.4 mg 0.1-0.4 mg, IV, SEE ADMIN INSTRUCTIONS, Starting on Tue06/17/25 at 0717, Until Tue06/18/25 at 2110, Routine, PACU oxyCODONE (ROXICODONE) tablet 10 mg 10 mg, Oral, EVERY 4 HOURS PRN, Starting on Tue06/18/25 at 0633, Until Tue06/18/25 at 1302, Pain (See admin instructions), Routine, Post-op - Floor Given 06/18/2025 10:20 AM CDT 10 mg oxyCODONE (ROXICODONE) tablet 5 mg 5 mg, Oral, EVERY 4 HOURS PRN, Starting on Tue06/17/25 at 1448, Until Tue06/18/25 at 0633, Pain (See admin instructions), Routine, Post-op - Floor Given 06/17/2025 9:42 PM CDT 5 mg Given 06/17/2025 3:03 PM CDT 5 mg potassium CHLORIDE 20 mEq in dextrose 5 % - sodium chloride 0.45 % 1,000 mL infusion IV, at 40 mL/hr, CONTINUOUS, Starting on Tue06/17/25 at 1500, Until Tue06/18/25 at 2110, Routine, Post-op - Floor New Bag 06/17/2025 5:48 PM CDT 40 mL/hr pregabalin (LYRICA) capsule 25 mg 25 mg, Oral, EVERY 12 HOURS (BlD), First dose on Tue06/17/25 at 2100, Until Discontinued, Routine, Post-op - Floor Given 06/18/2025 10:14 AM CDT 25 mg Given 06/17/2025 9:42 PM CDT 25 mg pregabalin (LYRICA) capsule 75 mg 75 mg, Oral, PRE-PROCEDURE ONCE, 1 dose, Starting on Tue06/17/25 at 0534, Until Tue06/17/25 at 0616, Routine, Pre-opIndications:Colovesical fistula,Diverticulitis Given 06/17/2025 6:16 AM CDT 75 mg documented in this encounter Active and Recently Administered Medications Times are shown in CDT. Scheduled Medication Order 06/16/2025 06/17/2025 06/18/2025 acetaminophen (TYLENOL) tablet 1,000 mg (COMPLETED) 1,000 mg, Oral, PRE-PROCEDURE ONCE, 1 dose, Starting on Tue06/17/25 at 0534, Until Tue06/17/25 at 0615, Routine, Pre-op 0615 (Given - Provider: Shekhar Terrazas RN) acetaminophen (TYLENOL) tablet 650 mg 650 mg, Oral, EVERY 6 HOURS, First dose on Tue06/17/25 at 1800, Until Discontinued, Routine, Post-op - Floor 1816 (Given - Provider: TRINITY Oleary) 0009 (Given - Provider: Madie Freeman LPN)0559 (Given - Provider: Madie Freeman LPN)1219 (Given - Provider: Carter Hassan RN)1800 (Due) alvimopan (ENTEREG) capsule 12 mg (COMPLETED) 12 mg, Oral, PRE-PROCEDURE ONCE, 1 dose, Starting on Tue06/17/25 at 0534, Until Tue06/17/25 at 0616, Routine, Pre-op, The ordering provider acknowledges review of the [employer]S education on the benefits and risks of alvimopan? (see reference links above): Yes 0616 (Given - Provider: Shekhar Terrazas RN) alvimopan (ENTEREG) capsule 12 mg 12 mg, Oral, TWO TIMES DAILY, 14 doses, First dose on Tue06/18/25 at 0900, Last dose on Tue06/24/25 at 2100, Routine, Post-op - Floor, The ordering provider acknowledges review of the [employer]S education on the benefits and risks of alvimopan? (see reference links above): Yes 1015 (Given - Provider: Carter Hassan RN) amLODIPine (NORVASC) tablet 10 mg 10 mg, Oral, DAILY, First dose on Tue06/17/25 at 1500, Until Discontinued, Routine, Previous Med: amLODIPine (NORVASC) 10 mg tablet - Orig Sig - Take 1 Tablet by mouth daily. 1503 (Given - Provider: TRINITY Oleary) 1013 (Given - Provider: Carter Hassan RN) carvediloL (COREG) tablet 12.5 mg 12.5 mg, Oral, TWO TIMES DAILY, First dose on Tue06/17/25 at 2100, Until Discontinued, Previous Med: CARVEDILOL ORAL - Orig Sig - Take 12.5 mg by mouth 2 times daily. 2142 (Given - Provider: Madie Freeman LPN) 1015 (Given - Provider: Carter Hassan RN) celecoxib (CeleBREX) capsule 200 mg (COMPLETED) 200 mg, Oral, PRE-PROCEDURE ONCE, 1 dose, Starting on Tue06/17/25 at 0534, Until Tue06/17/25 at 0615, Routine, Pre-op 0615 (Given - Provider: Shekhar Terrazas RN) cloNIDine HCL (CATAPRES) tablet 0.1 mg 0.1 mg, Oral, TWO TIMES DAILY, First dose on Tue06/17/25 at 2100, Until Discontinued, Routine, Previous Med: cloNIDine HCL (CATAPRES) 0.1 mg tablet - Orig Sig - Take 0.1 mg by mouth 2 times daily as needed for Blood Pressure. 2141 (Given - Provider: Madie Freeman LPN) 1013 (Refused - Provider: Carter Hassan RN) enoxaparin (LOVENOX) injection 70 mg 70 mg (rounded from 73 mg = 0.5 mg/kg 146 kg), subCUT, DAILY, First dose on Tue06/18/25 at 0600, Until Discontinued, Routine, Indication: Prophylaxis of VTE 59 (Given - Provider: Madie Freeman LPN) hydroCHLOROthiazide tablet 25 mg 25 mg, Oral, DAILY, First dose on Tue06/17/25 at 1500, Until Discontinued, Routine, Previous Med: hydroCHLOROthiazide 25 mg tablet - Orig Sig - Take 1 Tablet by mouth daily. 1503 (Given - Provider: TRINITY Oleary) 1013 (Given - Provider: Carter Hassan RN) ketorolac (TORADOL) injection 10 mg 10 mg, IV, EVERY 6 HOURS, 8 doses, First dose on Tue06/18/25 at 0645, Last dose on Tue06/20/25 at 0000, Routine 0758 (Given - Provider: Carter Hassan RN)1200 (Canceled Entry - Provider: Carter Hassan RN)1800 (Due) lisinopriL (PRINIVIL) tablet 40 mg 40 mg, Oral, DAILY, First dose on Tue06/17/25 at 1500, Until Discontinued, Routine, Previous Med: lisinopriL (PRINIVIL) 40 mg tablet - Orig Sig - Take 1 Tablet by mouth daily. 1503 (Given - Provider: TRINITY Oleary) 1013 (Given - Provider: Carter Hassan, DONTE) magnesium OXIDE (MAG-OX) tablet 400 mg 400 mg, Oral, DAILY, First dose on Tue06/17/25 at 1500, Until Discontinued, Routine, Post-op - Floor 1503 (Given - Provider: TRINITY Oleary) 1015 (Given - Provider: Carter Hassan RN) metroNIDAZOLE (FLAGYL) IVPB 500 mg (COMPLETED)(Linked Group 1) 500 mg, IV, PRE-PROCEDURE ONCE, 1 dose, Starting on Tue06/17/25 at 0534, Until Tue06/17/25 at 0725, Routine, Pre-op, Antibiotic Indication: Surgical prophylaxis 0655 (New Bag - Provider: Shekhar Terrazas RN)0725 (Stopped - Provider: Carter Hassan RN) naloxone (NARCAN) 0.4 mg/mL injection 0.1-0.4 mg 0.1-0.4 mg, IV, SEE ADMIN INSTRUCTIONS, Starting on Tue06/17/25 at 0717, Until Tue06/18/25 at 2110, Routine, PACU pregabalin (LYRICA) capsule 25 mg 25 mg, Oral, EVERY 12 HOURS (BlD), First dose on Tue06/17/25 at 2100, Until Discontinued, Routine, Post-op - Floor 2142 (Given - Provider: Maide Freeman LPN) 1014 (Given - Provider: Carter Hassan RN) pregabalin (LYRICA) capsule 75 mg (COMPLETED) 75 mg, Oral, PRE-PROCEDURE ONCE, 1 dose, Starting on Tue06/17/25 at 0534, Until Tue06/17/25 at 0616, Routine, Pre-op 0616 (Given - Provider: Shekhar Terrazas, DONTE) Continuous Medication Order 06/16/2025 06/17/2025 06/18/2025 lactated ringers infusion (CANCELED) IV, at 100 mL/hr, CONTINUOUS, Starting on Tue06/17/25 at 0545, Until Tue06/17/25 at 1448, Routine, Pre-op 0654 (New Bag - Provider: Joleann Whittet, RN)0720 (Continue from Pre-Op - Provider: CASPER Odonnell)1448 (Stopped - Provider: Osmany Ford, DONTE - Comment: [Order ends at this time. Document the following action when infusion is complete: Stopped]) lactated ringers infusion (CANCELED) IV, at 125 mL/hr, POST-PROCEDURE CONTINUOUS, Starting on Tue06/17/25 at 0730, Until Tue06/18/25 at 1302, Routine, PACU 1015 (New Bag - Provider: Stephanie Almaguer RN) 1302 (Stopped - Provider: Carter Hassan RN - Comment: [Order ends at this time. Document the following action when infusion is complete: Stopped]) potassium CHLORIDE 20 mEq in dextrose 5 % - sodium chloride 0.45 % 1,000 mL infusion IV, at 40 mL/hr, CONTINUOUS, Starting on Tue06/17/25 at 1500, Until Tue06/18/25 at 2110, Routine, Post-op - Floor 1748 (New Bag - Provider: TRINITY Oleary) 2109 (Due: Order Ending - Provider: PROVIDER, DISCHARGE PATIENT - Comment: [Order ends at this time. Document the following action when infusion is complete: Stopped]) PRN Medication Order 06/16/2025 06/17/2025 06/18/2025 BUPivacaine-EPINEPHrine (PF) (SENSORCAINE MPF WITH EPI) 0.5 %-1:200,000 injection (CANCELED) INTRA-PROCEDURE PRN, Starting on Tue06/17/25 at 0833, Until Tue06/17/25 at 0915, Routine, Intra-op 0854 (Given - Provider: Mukul Orozco MD) dicyclomine (BENTYL) capsule 10 mg 10 mg, Oral, FOUR TIMES DAILY PRN, Starting on Tue06/17/25 at 1448, Until Tue06/18/25 at 2110, abdominal pain, Routine, Previous Med: dicyclomine (BENTYL) 10 mg capsule - Orig Sig - Take 1 Capsule (10 mg) by mouth 4 times daily as needed (abdominal pain). diphenhydrAMINE (BENADRYL) injection 12.5 mg (COMPLETED) 12.5 mg, IV, POST-PROCEDURE ONCE PRN, 1 dose, Starting on Tue06/17/25 at 0717, Until Tue06/17/25 at 1011, Nausea/Emesis, Routine, PACU 1011 (Given - Provider: Stephanie Almaguer, DONTE) fentaNYL PF (SUBLIMAZE) 50 mcg/mL injection 50 mcg (CANCELED) 50 mcg, IV, POST-PROCEDURE Q 3 MINUTES PRN, 5 doses, Starting on Tue06/17/25 at 0717, Until Tue06/17/25 at 1436, Pain, Mild, Pain, Moderate, Routine, PACU 0921 (Given - Provider: Stephanie Almaguer, DONTE)0934 (Given - Provider: Stephanie Almaguer, DONTE)1012 (Given - Provider: Stephanie Almaguer, DONTE)1036 (Given - Provider: Stephanie Almaguer RN) HYDROmorphone (DILAUDID) tablet 2 mg 2 mg, Oral, EVERY 4 HOURS PRN, Starting on Tue06/18/25 at 1302, Until Tue06/18/25 at 2110, Pain (See admin instructions), Routine 1318 (Given - Provid er: Carter Hassan RN)1803 (Given - Provider: Carter Hassan RN) HYDROmorphone (PF) (DILAUDID) injection 0.5 mg (COMPLETED) 0.5 mg, IV, POST-PROCEDURE Q 5 MINUTES PRN, 5 doses, Starting on Tue06/17/25 at 0717, Until Tue06/17/25 at 1018, Pain, Severe, Routine, PACU 0940 (Given - Provider: Stephanie Almaguer RN)0947 (Given - Provider: Stephanie Almaguer, DONTE)0959 (Given - Provider: Stephanie Almaguer, RN)1007 (Given - Provider: Stephanie Almaguer, RN)1018 (Given - Provider: Stephanie Almaguer, DONTE) HYDROmorphone (PF) (DILAUDID) injection 0.5 mg (CANCELED) 0.5 mg, IV, POST-PROCEDURE Q 5 MINUTES PRN, 3 doses, Starting on Tue06/17/25 at 1119, Until Tue06/17/25 at 1436, Pain (See admin instructions), Routine 1122 (Given - Provider: Stephanie Almaguer RN)1326 (Given - Provider: Stephanie Almaguer RN) HYDROmorphone (PF) (DILAUDID) injection 1 mg 1 mg, IV, EVERY 2 HOURS PRN, Starting on Tue06/17/25 at 1448, Until Tue06/18/25 at 2110, Pain (See admin instructions), Routine, Post-op - Floor 1744 (Given - Provider: TRINITY Oleary) 0009 (Given - Provider: Madie Freeman LPN) ondansetron (ZOFRAN) 4 mg/2 mL injection 4 mg 4 mg, IV, EVERY 6 HOURS PRN, Starting on Tue06/17/25 at 1448, Until Tue06/18/25 at 2110, Nausea/Emesis, Routine, Post-op - Floor oxyCODONE (ROXICODONE) tablet 10 mg (CANCELED) 10 mg, Oral, EVERY 4 HOURS PRN, Starting on Tue06/18/25 at 0633, Until Tue06/18/25 at 1302, Pain (See admin instructions), Routine, Post-op - Floor 1020 (Given - Provid er: Carter Hassan RN) oxyCODONE (ROXICODONE) tablet 5 mg (CANCELED) 5 mg, Oral, EVERY 4 HOURS PRN, Starting on Tue06/17/25 at 1448, Until Tue06/18/25 at 0633, Pain (See admin instructions), Routine, Post-op - Floor 1503 (Given - Provider: TRINITY Oleary)2142 (Given - Provider: Madie Freeman LPN) prochlorperazine maleate (COMPAZINE) tablet 10 mg 10 mg, Oral, EVERY 6 HOURS PRN, Starting on Tue06/17/25 at 1448, Until Tue06/18/25 at 2110, Nausea/Emesis, Routine, Post-op - Floor Linked Groups Order Group 1: ciprofloxacin in dextrose 5% (CIPRO) IVPB 400 mg (CANCELED) 400 mg, IV, PRE-PROCEDURE ONCE, 1 dose, Starting on Tue06/17/25 at 0534, Until 8/25/25 at 1436, Routine, Pre-op, Antibiotic Indication: Surgical prophylaxis And metroNIDAZOLE (FLAGYL) IVPB 500 mg (COMPLETED)Jump to med 500 mg, IV, PRE-PROCEDURE ONCE, 1 dose, Starting on Tue06/17/25 at 0534, Until Tue06/17/25 at 0725, Routine, Pre-op, Antibiotic Indication: Surgical prophylaxis documented in this encounter
--- OUTSIDE RECORDS SUMMARY | 2025-06-17 07:20 | XMS_ITS | Encounter Summary ---
Author Organization [facility] Address [address] [place] [address] Care Team Providers Care Traffic Technician Name Role Phone Unavailable Primary Care Provider Unavailabl e Reason for Visit * Auth/Cert (Routine) Specialty Diagnoses / Procedures Referred By Teresa t Referred To Contact Perioperative Diagnoses Colovesical fistula Diverticulitis Colovesical fistula; Diverticulitis Procedures AR LAPAROSCOPY COLECTOMY PARTIAL W/ANASTOMOSIS AR LAPS COLECTOMY PRTL W/COLOPXTSTMY LW ANAST AR LAPS COLECTMY PRTL W/COLOPXTSTMY LW ANAST W/CLST SIGMOID COLECTOMY HAND ASSISTED LAPAROSCOPIC SIGMOID COLECTOMY HAND ASSISTED LAPAROSCOPIC SIGMOID COLECTOMY HAND ASSISTED LAPAROSCOPIC Mukul Orozco MD [address] [place] [id number] Phone: tel: fax: [facility] Operating Room [facility] [place] [address] Phone: tel: fax: Referral ID Status Reason Start Date Expiration Date Visits Re quested Visits Authorized [id number] 1 1 Encounter Details Date Type Department Care Team (Late st Contact Info) Description 06/17/2025 7:20 AM CDT Anesthesia Event [facility] Operating Room [address] [place] [address] Shon Morrow II [address] [place] [id number] Anesthesia Record Procedure Summary Procedure Name Responsible Anesthesiologist Anesthesia Start Time Anesthesia Stop Time SIGMOID COLECTOMY HAND ASSISTED LAPAROSCOPIC (Abdomen) [facility] II, Shon Sotelo, 06/17/25 0720 06/17/25 0920 Events Date Time Event Comment 06/17/2025 0719 0720 AN Equip Check Anesthesia eq uipment and materials checked in accordance with local policy. 0720 An Start 0720 In Room This event disp lays the In Room time documented in the Surgical Log. Deleting this event will not remove it from the log but will remove it from the Grid and Graph timeline. 0736 An Start Data 0736 Pre-Induction Immediate pre- induction anesthetic assessment performed. Vital signs as noted on graphic. 0748 An Induction 0752 An Intubation 0809 Procedure Start This event d isplays the Procedure Start time documented in the Surgical Log. Deleting this event will not remove it from the log but will remove it from the Grid and Graph timeline. 0811 Anesthesia Ready 0911 Procedure Stop This event di splays the Procedure Stop time documented in the Surgical Log. Deleting this event will not remove it from the log but will remove it from the Grid and Graph timeline. 0914 An Extubation Emergence unev entful Awake, spontaneous respirations. Adequate muscle strength demonstrated Adequate tidal volume. Orapharynx suctioned. Extubated with positive pressure ventilation. 0914 an stop data 0915 Out of Room This event disp lays the Out of Room time documented in the Surgical Log. Deleting this event will not remove it from the log but will remove it from the Grid and Graph timeline. 0920 An Stop 0920 Hand-off to Receiving Clinic oscar Meds Name Total midazolam (VERSED) 1 mg/mL injection 2 mg fentaNYL (SUBLIMAZE) PF 50 mcg/mL injection 100 mcg lidocaine PF (XYLOCAINE MPF) 2% injectio n 5 mL propofol (DIPRIVAN) 10 mg/mL injection 200 mg rocuronium (ZEMURON) 10mg/mL injection 8 0 mg sugammadex (BRIDION) 100 mg/mL injection 300 mg lactated ringers infusion 0 mL * Agents Name N2O Air Sevoflurane % Sevoflurane O2 N2O Inspired N2O O2 * Blood No blood administrations on file. Lines, Drains, and Airways Type Details Placement Removal Wound 06/17/25; No; abdome n; Surgical (low midline incision with port sites X 1) 06/17/25 0000 by Zohaib, Svitlana R, RN Peripheral IV Pre-Hospital Start: No; Orientation: Left, Inner, Mid; Location: Arm; Device: Angiocath; Gauge: 18 gauge; Needle Length: 1.16 in length; Insertion Attempts: 1; Patient Tolerance: tolerated well; Removal Indication: no longer indicated; Removal Interventions: pressure dressing, catheter intact 06/17/25 0614 by Saundra Frazier PCT 06/18/25 1800 by Carter Hassan RN Indwelling Urethral Catheter 06/17/25; 0756; No; Indwelling double lumen coud tip catheter; 100% silicone, silver hydrogel antimicrobial coated; 16 Fr; inserted (cleaned with -Care wipes); 1; 5; 10; 06/19/25; 0710 06/17/25 0756 by Svitlana Penny RN 06/19/25 0710 by PROVIDER, DISCHARGE PATIENT Endotracheal Airway Type: ETT; Size: 8; Attempts: 1; Verification: Auscultated bilateral breath sounds, Equal chest movement, Continuous waveform capnography 06/17/25 0812 by Roge White AA 06/17/25 0914 by Roge White AA Drain Present on Admission : No; Tube Number: #1; Type: round; Size (Fr): 19 Fr 06/17/25 0851 by Jennifer Lomas RN 06/17/25 1021 by Stephanie Almaguer RN Drain Present on Admission : No; Tube Number: #1; Orientation: Left:, lower; Location: flank; Type: Skip-Lujan; Size (Fr): 19 Fr 06/17/25 0857 by Svitlana Penny RN 06/18/25 1800 by Carter Hassan, RN documented in this encounter Social History Tobacco Use Types Packs/Day Years Used Date Smoking Tobacco: Former Cigarettes Smokeless Tobacco: Never Alcohol Use Standard Drinks/Week Comments Yes 0 [...] on file documented as of this encounter OR Notes * Anesthesia Postprocedure Evaluation - Shon Morrow II, DO - 06/17/2025 1:54 PM CDT Post Anesthesia Evaluation Vitals: Vitals Value Taken Time BP 110/95 06/17/25 13:40 Temp 36.8 ??C 06/17/25 09:17 Resp 11 06/17/25 13:45 SpO2 96 % 06/17/25 13:45 Pulse 72 06/17/25 13:45 Heart Rate 74 bpm 06/17/25 13:45 Pain Rating: Pain Rating: Rest: 6 (06/17/25 1122) Pain Rating: Activity: 7 (06/17/25 1326) Score: FLACC (rest): 0 (06/17/25 1154) Anesthesia Post Evaluation Patient location during evaluation: PACU Patient participation: patient was able to participate in the post op evaluation Level of consciousness: 0 = alert, responsive, answers simple questions appropriately, able to perform simple tasks Pain management: adequate Airway patency: patent Nausea or Vomiting: none Cardiovascular status: regular rate and rhythm Respiratory status: no respiratory symptoms Hydration status: well hydrated No notable events documented. Shon Morrow II, DO * Anesthesia Handoff - Roge White AA - 06/17/2025 9:20 AM CDT Post-Anesthetic transfer of care report elements to appropriate post-anesthesia recovery environment completed in accordance with procedure. I completed my handoff to the receiving nurse during which we: 1. Identified the patient 2. Identified the responsible provider 3. Reviewed the pertinent medical history 4. Discussed the surgical course 5. Reviewed intra-op anesthesia management and issues during anesthesia 6. Set expectations for post-procedure period 7. Orders as necessary and appropriate for continuation of care are present in Epic. 8. Allowed opportunity for questions and acknowledgement of understanding. Vital Signs: Vitals Value Taken Time BP 140/88 06/17/25 09:17 Temp 36.8 ??C 06/17/25 09:17 Resp 13 06/17/25 09:17 SpO2 99 % 06/17/25 09:17 Pulse 68 06/17/25 09:17 Heart Rate 68 bpm 06/17/25 09:17 9:20 AM CASPER Odonnell * Anesthesia Procedure Notes - Shon Morrow II, DO - 06/17/2025 8:20 AM CDTAssociated Order(s): Spinal Block Spinal Block Reason for block: primary anesthetic Staffing Performed: Anesthesiologist (/) Authorized by: Shon Morrow II, DO Performed by: Shon Morrow II, DO Preanesthetic Checklist Completed: patient identified, IV checked, risks and benefits discussed, surgical consent, monitorsand equipment checked, pre-op evaluation and timeout performed Spinal Hand hygiene performed prior to procedure Patient was prepped and draped in usual sterile fashion Time out performed Mask worn Patient position: Sitting Prep: ChloraPrep Local Anesthetic: Lidocaine 1% without epinephrine Patient monitoring: Continuous pulse oximetry, EKG, Heart rate and Non-invasive blood pressure Approach: Midline Location: L3-4 Injection Technique: Single-shot [place] Identification: palpation technique Number of Attempts: 2 Spinal Needle Needle type: Pencil-tip Needle gauge: 25 G Needle length: 15 cmCSF visualized Assessment No paresthesia Outcome: Complete Additional Notes Sterile prep/drape, Unsuccessful L3/4 attempt w/ 10cm needle, long Benja then used same level without CSF x1, switched L4/5 long needle x1, no CSF, procedure aborted, no paresthesias or pain, tolerated well. * Anesthesia Procedure Notes - Roge White AA - 06/17/2025 8:12 AM CDT Associated Order(s): Airway Airway Date/Time: 06/17/2025 8:12 AM Location: OR Plan: routine intubation Patient Identity Confirmed by: Verbally with patient and armband Staffing Performed: ENGINEER SOILS/CAA Authorized by: Shon Morrow II, DO Performed by: Roge White AA Indications and Patient Condition: Indications for Airway Management: Anesthesia Sedation Level: general anesthesia Preoxygenated: yes Patient Position: Sniffing Mask Difficulty Assessment: 1 - vent by mask Plan to extubate at end of case: Yes Final Airway Details: Final Airway Type: Endotracheal airway ETT Cuffed: Yes Technique Used for Successful ETT Placement: Video laryngoscopy Devices/Methods Used in Placement: Intubating stylet Blade Size: 4 Insertion Site: Oral ETT Size (mm): 8.0 Video Laryngoscopy Devices: Weems Measured from: Lips ETT to Lips (cm): 23 Tube secured with: Tape Placement Verified by: auscultation, end tidal CO2 and chest rise Cormack-Lehane Classification: Grade I - full view of glottis Number of Attempts at Approach: 1 Additional Procedure Information: atraumatic and dentition unchanged * Anesthesia Preprocedure Evaluation - Shon Morrow II, DO - 06/17/2025 7:17 AM CDT Relevant Problems No relevant active problems Anesthesia Evaluation Airway Mallampati: II TM distance: >3 FB Neck ROM: full Dental Pulmonary breath sounds clear to auscultation (-) asthma, shortness of breath, recent URI Cardiovascular Exercise tolerance: good (+) hypertension (-) pacemaker, valvular problems/murmurs, past UT, CAD, CABG/stent, dysrhythmias, angina, CHF, orthopnea, PND, BONILLA Rhythm: regular Rate: normal Neuro/Psych (-) neuromuscular disease, TIA, CVA GI/Hepatic/Renal (-) GERD, PUD, hepatitis, liver disease Endo/Other (-) diabetes mellitus, hypothyroidism, hyperthyroidism Abdominal Anesthesia History No history of anesthetic complications and no history of malignant hyperthermia. Anesthesia Plan ASA Final: 3 General (GETA, glidescope prn, large bore PIV access. Intrathecal Duramorph if requested per surgeon) Intravenous induction Oral ETT airway maintenance NPO status > 8 hours Anesthetic plan and risks discussed with Patient. Plan discussed with Electric Truck Operator. Post-op Pain Control Plan to use Per surgeon for post-op pain control. Martínez Chinchilla is a 40 y.o. male Date: 06/17/2025 Interview: Pre-Op Preoperative Diagnosis Colovesical fistula; Diverticulitis Scheduled Procedure SIGMOID COLECTOMY HAND ASSISTED LAPAROSCOPIC NPO: >8 hours (solid food) and >2 hours (clear liquids) No Known Allergies Past Medical History: Diagnosis Date Deep vein thrombosis (DVT) (CMS/HCC) Hypertension Past Surgical History: Procedure Laterality Date AR COLONOSCOPY FLX DX W/COLLJ SPEC WHEN PFRMD N/A 05/24/2025 COLONOSCOPY performed by Sharif Marshall MD at [facility] No current facility-administered medications on file prior to encounter. Current Outpatient Medications on File Prior to Encounter Medication Sig Dispense Refill ondansetron (ZOFRAN ODT) 4 mg Tablet, Rapid Dissolve Take 1 Tablet (4 mg) by mouth every 6 hours asneeded for Nausea/Emesis. Dissolve tablet on top of tongue, then swallow with saliva. 6 Tablet 0 neomycin (MYCIFRADIN) 500 mg tablet The day before your surgery take two tablets by mouth at 1 pm, take two tablets by mouth at 2 pm, and take two tablets by mouth at 10 pm. 6 Tablet 0 sodium, potassium and magnesium SULFATES (Suprep Bowel Prep Kit) 17.5-3.13-1.6 gram Recon Soln Follow directions from the clinic 354 mL 0 metroNIDAZOLE (FLAGYL) 500 mg tablet The day before your surgery take 1 tablet by mouth at 1 pm, take 1 tablet by mouth at 2 pm, and take 1 tablet by mouth at 10 pm. 3 Tablet 0 amLODIPine (NORVASC) 10 mg tablet Take 1 Tablet by mouth daily. hydroCHLOROthiazide 25 mg tablet Take 1 Tablet by mouth daily. lisinopriL (PRINIVIL) 40 mg tablet Take 1 Tablet by mouth daily. CARVEDILOL ORAL Take 12.5 mg by mouth 2 times daily. dicyclomine (BENTYL) 10 mg capsule Take 1 Capsule (10 mg) by mouth 4 times daily as needed (abdominal pain). 240 Capsule 3 cloNIDine HCL (CATAPRES) 0.1 mg tablet Take 0.1 mg by mouth 2 times daily as needed for Blood Pressure. Physical Exam: Airway Class: II (soft palate, uvula, fauces visible) Dentition: upper and lower dentures Pulmonary: clear to auscultation Cardiac: regular rate and rhythm Neuro: alert Pertinent lab: Results for orders placed or performed during the hospital encounter of 06/17/25 (from the past 24 hours) VERIFICATION BLOOD GROUP Result Value Ref Range ABO GROUP A RH (D) TYPE Negative TYPE AND SCREEN Result Value Ref Range ABO GROUP A RH (D) TYPE Negative ANTIBODY SCREEN Negative CBC WITHOUT DIFFERENTIAL Result Value Ref Range WBC 12.7 (H) 4.5 - 11.0 K/uL RBC 5.24 4.60 - 6.20 M/uL HEMOGLOBIN 15.4 14.0 - 18.0 g/dL HEMATOCRIT 44.3 41.0 - 53.0 % MCV 84.5 84.0 - 103.0 fL MCH 29.4 27.0 - 34.0 pg MCHC 34.8 30.0 - 35.0 g/dL PLATELETS 288 140 - 440 K/uL MPV 8.6 (L) 8.9 - 12.8 fL RDW 13.4 11.0 - 14.5 % RDW-STDEV 41.5 37.0 - 54.0 fL BASIC METABOLIC PANEL Result Value Ref Range SODIUM 137 136 - 145 mmol/L POTASSIUM 3.8 3.5 - 5.1 mmol/L CHLORIDE 101 98 - 107 mmol/L CO2 24 22 - 29 mmol/L CALCIUM 9.0 8.6 - 10.0 mg/dL BUN 17 6 - 20 mg/dL CREATININE 1.06 0.67 - 1.17 mg/dL GLUCOSE 119 (H) 74 - 99 mg/dL GFR >60 >=60 mL/min/1.73 sq meter ANION GAP 12 9 - 20 mmol/L Pertinent lab: Lab Results Component Value Date/Time WBC 12.7 (H) 06/17/2025 06:16 AM HGB 15.4 06/17/2025 06:16 AM HCT 44.3 06/17/2025 06:16 AM PLT 288 06/17/2025 06:16 AM MCV 84.5 06/17/2025 06:16 AM Lab Results Component Value Date/Time NA 137 06/17/2025 06:16 AM K 3.8 06/17/2025 06:16 AM CL 101 06/17/2025 06:16 AM CO2 24 06/17/2025 06:16 AM CA 9.0 06/17/2025 06:16 AM BUN 17 06/17/2025 06:16 AM CREAT 1.06 06/17/2025 06:16 AM GLUCOSE 119 (H) 06/17/2025 06:16 AM ANIONGAP 12 06/17/2025 06:16 AM Receiving beta-karlos therapy? Yes Received dose within last 24 hours? Yes The risks and benefits of the proposed anesthetic have been discussed. The patient has agreed to GETA. Anesthesia guideline orders initiated. Special considerations: Shon Morrow II, DO documented in this encounter Plan of Treatment Upcoming Encounters Date Type Department Care Team (Late st Contact Info) Description 07/03/2025 7:30 AM CDT Appointment [facility] [address] [place] [address] Arelis Matt NP [address] [address] Zoie Giles, ELIJAH [address] [place] [address] 07/12/2025 9:45 AM CDT Office Visit [facility] [place] Gen [facility] Surg [address] [address] Arelis Matt NP [address] [address] documented as of this encounter Procedures Procedure Name Priority Date/Time Associated Diagnosis Comments AR ANESTHESIA BLOCK PB PLACEHOLDER CHARGE Routine 06/17/2025 8:20 AM CDT AR ANES INSERT ENDOTRACHEAL AIRWAY Routine 06/17/2025 8:12 AM CDT documented in this encounter Results * AR ANESTHESIA BLOCK PB PLACEHOLDER CHARGE (06/17/2025 8:20 AM CDT) Narrative Shon Morrow II, DO - 06/17/2025 8:20 AM CDT Shon Morrow II, DO 06/17/2025 8:37 AM Spinal Block Reason for block: primary anesthetic Staffing Performed: Anesthesiologist (/) Authorized by: Shon Morrow II, DO Performed by: Shon Morrow II, DO Preanesthetic Checklist Completed: patient identified, IV checked, risks and benefits discussed, surgical consent, monitors and equipment checked, pre-op evaluation and timeout performed Spinal Hand hygiene performed prior to procedure Patient was prepped and draped in usual sterile fashion Time out performed Mask worn Patient position: Sitting Prep: ChloraPrep Local Anesthetic: Lidocaine 1% without epinephrine Patient monitoring: Continuous pulse oximetry, EKG, Heart rate and Non-invasive blood pressure Approach: Midline Location: L3-4 Injection Technique: Single-shot [place] Identification: palpation technique Number of Attempts: 2 Spinal Needle Needle type: Pencil-tip Needle gauge: 25 G Needle length: 15 cmCSF visualized Assessment No paresthesia Outcome: Complete Additional Notes Sterile prep/drape, Unsuccessful L3/4 attempt w/ 10cm needle, long Benja then used same level without CSF x1, switched L4/5 long needle x1, no CSF, procedure aborted, no paresthesias or pain, tolerated well. Sohn Morrow II, DO PROCEDURE/MINOR CHEEK RGICAL ORDERABLES Final Result * AR ANES INSERT ENDOTRACHEAL AIRWAY (06/17/2025 8:12 AM CDT) Narrative Roge White AA - 06/17/2025 8:12 AM CDT Roge White AA 06/17/2025 8:13 AM Airway Date/Time: 06/17/2025 8:12 AM Location: OR Plan: routine intubation Patient Identity Confirmed by: Verbally with patient and armband Staffing Performed: ENGINEER SOILS/CAA Authorized by: Shon Morrow II, DO Performed by: Le, Roge N, AA Indications and Patient Condition: Indications for Airway Management: Anesthesia Sedation Level: general anesthesia Preoxygenated: yes Patient Position: Sniffing Mask Difficulty Assessment: 1 - vent by mask Plan to extubate at end of case: Yes Final Airway Details: Final Airway Type: Endotracheal airway ETT Cuffed: Yes Technique Used for Successful ETT Placement: Video laryngoscopy Devices/Methods Used in Placement: Intubating stylet Blade Size: 4 Insertion Site: Oral ETT Size (mm): 8.0 Video Laryngoscopy Devices: Weems Measured from: Lips ETT to Lips (cm): 23 Tube secured with: Tape Placement Verified by: auscultation, end tidal CO2 and chest rise Cormack-Lehane Classification: Grade I - full view of glottis Number of Attempts at Approach: 1 Additional Procedure Information: atraumatic and dentition unchanged hSon Morrow II, DO PROCEDURE/MINOR CHEEK RGICAL ORDERABLES Final Result documented in this encounter Visit Diagnoses Not on filedocumented in this encounter Administered Medications Inactive Administered Medications - up to 3 most recent administrations Medication Order MAR Action Action Date Dose Rate Site fentaNYL PF (SUBLIMAZE) 50 mcg/mL injection IV, INTRA-PROCEDURE PRN, Starting on Tue06/17/25 at 0747, Until Tue06/17/25 at 0920, Routine, Anesthesia Intra-op Given 06/17/2025 9:11 AM CDT 50 mcg Given 06/17/2025 7:47 AM CDT 50 mcg lactated ringers infusion IV, at 100 mL/hr, CONTINUOUS, Starting on Tue06/17/25 at 0545, Until Tue06/17/25 at 1448, Routine, Pre-op Continue from Pre-Op 06/17/2025 7:20 AM CDT 100 mL/hr New Bag 06/17/2025 6:54 AM CDT 100 mL/hr lidocaine PF 2% (XYLOCAINE MPF) injection IV, INTRA-PROCEDURE PRN, Starting on Tue06/17/25 at 0748, Until Tue06/17/25 at 0920, Routine, Anesthesia Intra-op Given 06/17/2025 7:48 AM CDT 5 mL midazolam (VERSED) injection IV, INTRA-PROCEDURE PRN, Starting on Tue06/17/25 at 0720, Until Tue06/17/25 at 0920, Routine, Anesthesia Intra-op Given 06/17/2025 7:20 AM CDT 2 mg propofoL (DIPRIVAN) injection IV, INTRA-PROCEDURE PRN, Starting on Tue06/17/25 at 0748, Until Tue06/17/25 at 0920, Anesthesia Intra-op Given 06/17/2025 7:48 AM CDT 200 mg rocuronium injection IV, INTRA-PROCEDURE PRN, Starting on Tue06/17/25 at 0749, Until Tue06/17/25 at 0920, Routine, Anesthesia Intra-op Given 06/17/2025 7:53 AM CDT 30 mg Given 06/17/2025 7:49 AM CDT 50 mg sugammadex (BRIDION) 100 mg/mL injection IV, INTRA-PROCEDURE PRN, Starting on Tue06/17/25 at 0911, Until Tue06/17/25 at 0920, Routine, Anesthesia Intra-op Given 06/17/2025 9:11 AM CDT 300 mg documented in this encounter
--- OUTSIDE RECORDS SUMMARY | 2025-06-17 07:20 | XMS_ITS | Encounter Summary ---
Author Organization [facility] Address [address] [place] [address] Care Team Providers Care Biofuels Technology Development Manager Name Role Phone Unavailable Primary Care Provider Unavailabl e Reason for Visit * Auth/Cert (Routine) Specialty Diagnoses / Procedures Referred By Teresa t Referred To Contact Perioperative Diagnoses Colovesical fistula Diverticulitis Colovesical fistula; Diverticulitis Procedures AL LAPAROSCOPY COLECTOMY PARTIAL W/ANASTOMOSIS AL LAPS COLECTOMY PRTL W/COLOPXTSTMY LW ANAST AL LAPS COLECTMY PRTL W/COLOPXTSTMY LW ANAST W/CLST SIGMOID COLECTOMY HAND ASSISTED LAPAROSCOPIC SIGMOID COLECTOMY HAND ASSISTED LAPAROSCOPIC SIGMOID COLECTOMY HAND ASSISTED LAPAROSCOPIC Mukul Orozco MD [address] [address] Phone: tel: fax: [facility] Operating Room [address] [place] [phone] Phone: tel: fax: Referral ID Status Reason Start Date Expiration Date Visits Re quested Visits Authorized [id number] 1 1 Encounter Details Date Type Department Care Team (Late st Contact Info) Description 06/17/2025 7:20 AM CDT - 06/17/2025 9:39 AM CDT Surgery [facility] Operating Room [address] [place] [phone] Mukul Orozco MD [address] [address] SIGMOID COLECTOMY HAND ASSISTED LAPAROSCOPIC Surgery Details Date/Time Status Location OR Service Patient Class Case Class Case Type Trauma Case? 06/17/2025 7:20 AM Posted [facility] MAIN OR OR 04 General Surgery Surgery Admit Elective No Panel 1 Procedure LRB Anes Op Region Wound Class Comments SIGMOID COLECTOMY HAND JUANPABLO MABLE LAPAROSCOPIC N/A General Abdomen Infected-IV SPLENIC FLEXURE MOBILIZATION LAPAROSCOPIC N/A General Abdomen Infected-IV RIGID PROCTOSCOPY N/A General Anus Contaminated -III Surgeon Surgeon Role Service Panel Mukul Orozco MD Primary General Surgery 1 documented in this encounter Social History Tobacco [...] Sign Reading Time Taken Comments Blood Pressure 112/64 06/17/2025 9:30 AM CDT Pulse 65 06/17/2025 9:35 AM CDT Temperature 36.8 C (98.3 F) 06/17/2025 9:17 AM CDT Respiratory Rate 9 06/17/2025 9:35 AM CDT Oxygen Saturation 92% 06/17/2025 9:35 AM CDT Inhaled Oxygen Concentration - - Weight 146 kg (321 lb 12.8 oz) 06/17/2025 5:44 A M CDT Height 175.3 cm (5' 9 ) 06/17/2025 5:44 AM CDT Body Mass Index 47.43 06/17/2025 5:44 AM CDT documented in this encounter Discharge Summaries * Arelis Matt NP - 06/20/2025 9:27 AM CDT Patient: Martínez Jhon Amor / 40 y.o. / male : 1985 [...] 20 Tablet Refills: 0 Narcan 4 mg/actuation Worley, Non-Aerosol EMERGENCY USE ONLY: Administer 1 spray [...] Your Medications These medications were sent to [address] [address] Hours: Tuesday - Tuesday: 7 am - 9 pm; Tuesday - Tuesday: 8 am - 4 pm HYDROmorphone 2 mg tablet Narcan 4 mg/actuation Worley, Non-Aerosol These medications were sent to [address] [address] [address] [address] ciprofloxacin HCl 500 mg tablet metroNIDAZOLE 500 [...] and we can make those arrangements. The Live Gamer jamarcus can also allow you to send inquiries directly to us as well as submit pictures of wounds, etc. Often the jamarcus is the most efficient way to each our healthcare team. Ifyou don't have it already please search your jamarcus store for Live Gamer. KEEP IN TOUCH WITH Live Gamer Please consider using [email or web address] to communicate with Dr. Orozco's office. Messages [...] the postoperative discomfort. Do not lift, push, stick puller 10 pounds May take a shower or [...] office on the next business day at [phone]. There is a physician on-call after hours [...] Everywhere. * Bowel Resection: Open: Post op (Puerto Rican) * Diverticulitis ([place]ican) * Hydromorphone ([place]ican) documented in this encounter Medications at Time of Discharge HYDROmorphone (DILAUDID) 2 mg tabletIndication s:Diverticulitis Take 1 Tablet (2 mg) by mouth every 4 hours as needed for Pain. Max Daily Amount: 12 mg 20 Tablet 06/18/2025 6:53 PM CDT 06/18/2025 naloxone (NARCAN) 4 mg/spray Worley, Non-Aerosol EMERGENCY USE ONLY: Administer 1 spray [...] Colon & Rectal Surgery Office: * Hailee Azar, PHARMACIST - 06/17/2025 3:05 PM CDT Pharmacy [...] us in the care of this patient. Hailee Azar, PHARMACIST * Hailee Azar PHARMACIST - 06/17/2025 3:05 PM CDT RX ANTICOAG MONITORING ORDERS Pharmacy to order, review, and report clinically significant changes in lab per [facility] Anticoagulation Protocol as follows: Orders for dosing changes and follow-up labs will be signed ???Per Protocol?? in [facility]. The name ofthe provider signed on the follow-up orders for cosignature will be assigned as follows: Orders placed by members of the Lehr Operator or Hospitalist physician groups: If the original [...] order appropriate labs as indicated by the [facility] Anticoagulation Monitoring policy located on [facility] intranet, unless already ordered. The medications that [...] This policy is in compliance with the [facility] National Patient Safety Goal 3E and authorized by the [facility] and Therapeutics Committee. Cosigned by Mukul [...] 3. Rigid proctoscopy Surgeon: Mukul Orozco M.D. Telecommunications Sales Representative: RUBY Thompson TRAIL CONSTRUCTION WORKER JUSTIFICATION: The use of an advanced bilingual legal assistant was required due to the complexity of the procedure and lack of similarly qualified assistants. Telecommunications Sales Representative tasks include: Positioning, prepping & draping, retraction, [...] Miscellaneous Notes * Care Plan - Carter Hsasan RN - 06/18/2025 5:37 PM CDT Shift [...] he has a PCP Dr Carreno at [place]. States he does not need HHC at [place]. Plans to DC home with when medically [...] Info) Description 07/03/2025 7:30 AM CDT Appointment [facility] [address] [place] [address] Arelis Matt NP [address] [address] Zoie Giles FNP [address] [place] [address] 07/12/2025 9:45 AM CDT Office Visit [facility] Gen Spec Surg [place] [address] [address] [facility] [address] [place] [address] Arelis Matt NP [facility] [address] [place] [phone] documented as of this encounter Procedures Procedure Name Priority Date/Time Associated Diagnosis Comments TELEMETRY REPORT 06/19/2025 2:31 PM CDT CBC WITH DIFFERENTIAL Routine 06/18/2025 4:37 AM CDT BASIC METABOLIC PANEL Routine 06/18/2025 4:37 AM CDT POC GLUCOSE Routine 06/17/2025 9:37 AM CDT PATHOLOGY Pathology 06/17/2025 8:31 AM CDT Colovesical fistula Diverticulitis AL ANRCT XM SURG REQ ANES GENERAL SPI/EDRL DX 06/17/2025 7:20 AM CDT Colovesical fistula Diverticulitis AL LAPS MOBLJ SPLENIC FLXR PFRMD W/PRTL COLECTOMY 06/17/2025 7:20 AM CDT Colovesical fistula Diverticulitis AL LAPS COLECTMY PRTL W/COLOPXTSTMY LW ANAST W/CLST 06/17/2025 7:20 AM CDT Colovesical fistula Diverticulitis AL LAPS COLECTOMY PRTL W/COLOPXTSTMY LW ANAST 06/17/2025 7:20 AM CDT Colovesical fistula Diverticulitis AL LAPAROSCOPY COLECTOMY PARTIAL W/ANASTOMOSIS 06/17/2025 7:20 AM CDT Colovesical fistula Diverticulitis CBC WITHOUT DIFFERENTIAL Stat 06/17/2025 6:16 AM CDT BASIC METABOLIC PANEL Routine 06/17/2025 6:16 AM CDT TYPE AND SCREEN Stat 06/17/2025 6:12 AM CDT VERIFICATION BLOOD GROUP Stat 06/17/2025 6:08 AM CDT documented in this encounter Results * TELEMETRY REPORT (06/19/2025 2:31 PM CDT) Provider Scanning ECG ORDERABLES Final Result * (ABNORMAL) BASIC METABOLIC PANEL (06/18/2025 4:37 AM CDT) SODIUM 136 136 - 145 mmol/L 06/18/2025 6:01 AM T [facility] POTASSIUM 4.2 3.5 - 5.1 mmol/L 06/18/2025 6:01 AM [facility] CHLORIDE 101 98 - 107 mmol/L 06/18/2025 6:01 AM [facility] CO2 26 22 - 29 mmol/L 06/18/2025 6:01 AM [facility] CALCIUM 8.1(L) 8.6 - 10.0 mg/dL 06/18/2025 6:01 AM [facility] BUN 13 6 - 20 mg/dL 06/18/2025 6:01 AM [facility] CREATININE 0.93 0.67 - 1.17 mg/dL 06/18/2025 6:01 AM [facility] GLUCOSE 186(H) 74 - 99 mg/dL 06/18/2025 6:01 AM [facility] GFR >60 >=60 mL/min/1.7 3 sq meter 06/18/2025 6:01 AM [facility] Comment:eGFR calculated with 2020 CKD-EPI equation. Vegetarian diet, extremely high or low muscle mass, and may affect results. Cystatin C with Glomerular Filtration Rate is a suitable alternative for these patients. ANION GAP 9 9 - 20 mmol/L 06/18/2025 6:01 AM [facility] Blood Venipuncture / Unknown 06/18/2025 4:37 AM CDT 06/18/2025 5:24 AM CDT Mukul Orozco MD CHEMISTRY ORDERABLES Final Resu lt [facility] CLIA # [id number] [address] [place] [address] [place] [address] * (ABNORMAL) CBC WITH DIFFERENTIAL (06/18/2025 4:37 AM CDT) [facility] WBC 11.1(H) 4.5 - 11.0 K/uL 06/18/2025 5:55 AM CDT [facility] RBC 4.88 4.60 - 6.20 M/uL 06/18/2025 5:55 AM CDT [facility] HEMOGLOBIN 14.2 14.0 - 18.0 g/dL 06/18/2025 5:55 AM CDT [facility] HEMATOCRIT 41.8 41.0 - 53.0 % 06/18/2025 5:55 AM CDT [facility] MCV 85.7 84.0 - 103.0 fL 06/18/2025 5:[facility] 29.1 27.0 - 34.0 pg 06/18/2025 5:55 AM CDT [facility] MCHC 34.0 30.0 - 35.0 g/dL 06/18/2025 5:55 AM CDT [facility] PLATELETS 244 140 - 440 K/uL 06/18/2025 5:[facility] MPV 9.4 8.9 - 12.8 fL 06/18/2025 5:55 [facility] RDW 13.4 11.0 - 14.5 % 06/18/2025 5:55 AM CDT [facility] RDW-STDEV 41.8 37.0 - 54.0 fL 06/18/2025 5:55 AM CDT [facility] NEUTROPHILS 69 42 - 75 % 06/18/2025 5:55 AM CDT [facility] LYMPHOCYTES 20(L) 24 - 44 % 06/18/2025 5:55 AM CDT [facility] MONOCYTES 9 2 - 10 % 06/18/2025 5:55 AM CDT [facility] Tus reQRdos [facility] EOSINOPHILS 2 0 - 7 % 06/18/2025 5:55 AM CDT [facility] BASOPHILS 0 0 - 1 % 06/18/2025 5:55 AM CDT [facility] IMMATURE GRANULOCYTES 0 0 - 2 % 06/18/2025 5:55 AM CDT [facility] NEUTROPHIL ABSOLUTE 7.66 2.00 - 8.00 K/uL 06/18/2025 5:55 AM CDT [facility] LYMPHOCYTE ABSOLUTE 2.22 1.20 - 4.00 K/uL 06/18/2025 5:55 AM CDT [facility] MONOCYTE ABSOLUTE 0.95(H) 0.10 - 0.60 K/uL 06/18/2025 5:55 AM CDT [facility] EOSINOPHIL ABSOLUTE 0.20 0.00 - 0.70 K/uL 06/18/2025 5:55 AM CDT [facility] BASOPHILS ABSOLUTE 0.05 0.00 - 0.20 K/uL 06/18/2025 5:55 AM CDT [facility] IMMATURE GRANULOCYTES ABSOLUTE 0.05 0.00 - 0.10 K/uL 06/18/2025 5:55 AM CDT [facility] SMEAR REVIEWED: NN - No Action Needed 06/18/2025 5:55 AM [facility] Blood Venipuncture / Unknown 06/18/2025 4:37 AM CDT 06/18/2025 5:25 AM CDT us Mukul Orozco MD HEMATOLOGY ORDERABLES Final Res ult [facility] CLIA # [id number] [address] [place] [address] [place], [place] [address] * (ABNORMAL) POC GLUCOSE (06/17/2025 9:37 AM CDT) GLUCOSE POC 127(H) 74 - 99 mg/dL 06/17/2025 9:37 AM CDT [facility] SPECIMEN SOURCE, GLUCOSE POC Capillary 06/17/2025 9:37 AM CDT [facility] Blood, whole 06/17/2025 9:37 AM CDT 06/17/2025 9:45 AM CDT us Mukul Orozco MD POINT OF CARE TESTING Final Res ult [facility] CLAZ # [id number] [address] [place] [address] [place] [address] * PATHOLOGY (06/17/2025 8:31 AM CDT) CASE REPORT Surgical Pathology Report Case: [id number] Authorizing Provider: Mukul Orozco MD Collected: 06/17/2025 08:31 AM Ordering Location: [facility] Received: 06/17/2025 10:09 AM Operating Room Pathologist: Cristian Thompson MD Specimen: Colon, sigmoid 2:05 PM CDT [facility] FINAL DIAGNOSIS A. Sigmoid colon, segmental resection - Diverticular disease with perforated acute diverticulitis and mural abscess - Viable resection margins - 2 benign lymph nodes Cristian Thompson MD [id number] 2:05 PM CDT [facility] at 1405 CDT GROSS DESCRIPTION A. Received in a container of formalin labeled [place] -sigmoid colon is a 34 cm in [...] fat contains 2 identifiable enlarged lymph nodes. Inserter sections are submitted as follows: A1-proximal margin, en face A2-distal margin, en face E9-R0-torn-thickness cross-section of perforated diverticulum, bisected (bisected point inked blue) A5-thickened bowel wall with abscess A6-enlarged lymph nodes, 2 Grossed by: Arelis Cornejo MS, ISAAC (ASCP)CM 5 2:05 PM CDT [facility] OPERATIVE PROCEDURE 1: SIGMOID COLECTOMY HAND ASSISTED LAPAROSCOPIC 2: SPLENIC FLEXURE MOBILIZATION LAPAROSCOPIC 3: PROCTOSCOPY 5 2:05 PM CDT [facility] CLINICAL INFORMATION Colovesical fistula; Diverticulitis N32.1-Colovesical fistula K57.92-Diverticulitis 5 2:05 PM T [facility] COMMENT The Signicast voice-activated dictation system may have been used [...] determined by the [facility] of [facility] in compliance with CLIA'88 regulations. Some of these tests rely on the use of analyte specific reagents and are subject to specific labeling requirements by the FDA. All controls show appropriate reactivity. This testing was developed by the [facility] of [facility]. It has not been cleared or approved by the FDA. The FDA has determined that such clearance or approval is not necessary. 5 2:05 PM CDT [facility] Tissue SIGMOID COLON STRUCTURE / Unknown Collection / Unknown 06/17/2025 8:31 AM CDT 06/17/2025 10:09 AM CDT us Mukul Orozco MD PATHOLOGY/CYTOLOGY ORDERABLES F inal Result [facility] CLIA # [id number] [address] [address] [place] [address] * (ABNORMAL) BASIC METABOLIC PANEL (06/17/2025 6:16 AM CDT) SODIUM 137 136 - 145 mmol/L 06/17/2025 6:55 AM CDT [facility] POTASSIUM 3.8 3.5 - 5.1 mmol/L 06/17/2025 6:55 AM CDT [facility] CHLORIDE 101 98 - 107 mmol/L 06/17/2025 6:55 AM CDT [facility] CO2 24 22 - 29 mmol/L 06/17/2025 6:55 AM CDT [facility] CALCIUM 9.0 8.6 - 10.0 mg/dL 06/17/2025 6:55 AM CDT [facility] BUN 17 6 - 20 mg/dL 06/17/2025 6:55 AM CDT [facility] CREATININE 1.06 0.67 - 1.17 mg/dL 06/17/2025 6:55 AM T [facility] GLUCOSE 119(H) 74 - 99 mg/dL 06/17/2025 6:55 AM T [facility] GFR >60 >=60 mL/min/1.7 3 sq meter 06/17/2025 6:55 AM T [facility] Comment:eGFR calculated with 2020 CKD-EPI equation. Vegetarian diet, extremely high or low muscle mass, and may affect results. Cystatin C with Glomerular Filtration Rate is a suitable alternative for these patients. ANION GAP 12 9 - 20 mmol/L 06/17/2025 6:55 AM T [facility] Blood Venipuncture / Unknown 06/17/2025 6:16 AM CDT 06/17/2025 6:23 AM CDT us Mukul Orozco MD CHEMISTRY ORDERABLES Final Resu lt [facility] CLIA # [id number] [address] [facility] [place] [address] * (ABNORMAL) CBC WITHOUT DIFFERENTIAL (06/17/2025 6:16 AM CDT) [facility] WBC 12.7(H) 4.5 - 11.0 K/uL 06/17/2025 6:40 AM CDT [facility] RBC 5.24 4.60 - 6.20 M/uL 06/17/2025 6:40 AM CDT [facility] HEMOGLOBIN 15.4 14.0 - 18.0 g/dL 06/17/2025 6:40 AM CDT [facility] HEMATOCRIT 44.3 41.0 - 53.0 % 06/17/2025 6:40 AM CDT [facility] MCV 84.5 84.0 - 103.0 fL 06/17/2025 6:40 AM CDT [facility] MCH 29.4 27.0 - 34.0 pg 06/17/2025 6:40 AM CDT [facility] MCHC 34.8 30.0 - 35.0 g/dL 06/17/2025 6:40 AM CDT [facility] PLATELETS 288 140 - 440 K/uL 06/17/2025 6:40 AM CDT [facility] MPV 8.6(L) 8.9 - 12.8 fL 06/17/2025 6:40 AM CDT [facility] RDW 13.4 11.0 - 14.5 % 06/17/2025 6:40 AM CDT [facility] RDW-STDEV 41.5 37.0 - 54.0 fL 06/17/2025 6:40 AM CDT [facility] Blood Venipuncture / Unknown 06/17/2025 6:16 AM CDT 06/17/2025 6:23 AM CDT Mukul Orozco MD HEMATOLOGY ORDERABLES Final Res ult Performing Organization Address [facility]/ZIP Co de Phone Number [facility] CLIA # [id number] [address] [facility] [place] [address] * TYPE AND SCREEN (06/17/2025 6:12 AM CDT) ABO GROUP A 06/17/2025 7:13 AM CDT [facility] RH (D) TYPE Negative 06/17/2025 7:13 AM CDT [facility] ANTIBODY SCREEN Negative 06/17/2025 7:13 AM CDT [facility] Blood Venipuncture / Unknown 06/17/2025 6:12 AM CDT 06/17/2025 6:20 AM CDT Mukul Orozco MD BLOOD BANK ORDERABLES Edited Re sult - Final Performing Organization Address [facility] Co de Phone Number [facility] CLIA#[id number] [address] [place] [address], * VERIFICATION BLOOD GROUP (06/17/2025 6:08 AM CDT) ABO GROUP A 06/17/2025 7:09 AM CDT [facility] RH (D) TYPE Negative 06/17/2025 7:09 AM CDT [facility] Blood Venipuncture / Unknown 06/17/2025 6:08 AM CDT 06/17/2025 6:14 AM CDT Mukul Orozco MD BLOOD BANK ORDERABLES Final Res ult Performing Organization Address [facility]/ZIP Co de Phone Number [facility] CLIA#[id number] [address] [place] [address], documented in this encounter Visit Diagnoses Diagnosis s/p lap sigmoid colectomy 06/17/2025 for chronic Diverticulitis with colovesical fistula- Primary Diverticulitis of colon (without mention of hemorrhage) Colovesical fistula Intestinovesical fistula s/p lap sigmoid colectomy 06/17/2025 for chronic Diverticulitis with colovesical fistula Diverticulitis of colon (without mention of hemorrhage) Colovesical fistula Intestinovesical fistula Colovesical fistula Intestinovesical fistula Diverticulitis Diverticulitis of colon (without mention of hemorrhage) documented in this encounter Admitting Diagnoses Diagnosis Diverticulitis Diverticulitis of colon (without mention of hemorrhage) Colovesical fistula Intestinovesical fistula documented in this encounter Administered Medications Inactive Administered Medications - up to 3 most recent administrations Medication Order MAR Action Action Date Dose Rate Site acetaminophen (TYLENOL) tablet 650 mg 650 mg, [...] Given 06/17/2025 3:03 PM CDT 10 mg BUPivacaine-EPINEPHrine (PF) (SENSORCAINE MPF WITH EPI) 0.5 %-1:200,000 injection INTRA-PROCEDURE PRN, Starting on Tue06/17/25 at 0833, Until Tue06/17/25 at 0915, Routine, Intra-op Given 06/17/2025 8:54 AM CDT 30 mL Opera tive Site carvediloL (COREG) tablet 12.5 mg 12.5 mg, Oral, TWO TIMES DAILY, First dose on Tue06/17/25 at 2100, Until Discontinued, Previous Med: CARVEDILOL ORAL - Orig Sig - Take 12.5 mg by mouth 2 times daily. Given 06/18/2025 10:15 AM CDT 12.5 mg Given 06/17/2025 9:42 PM CDT 12.5 mg cloNIDine HCL (CATAPRES) tablet 0.1 mg 0.1 mg, Oral, TWO TIMES DAILY, First dose on Tue06/17/25 at 2100, Until Discontinued, Routine, Previous Med: cloNIDine HCL (CATAPRES) 0.1 mg tablet - Orig Sig - Take 0.1 mg by mouth 2 times daily as needed for Blood Pressure. Given 06/17/2025 9:42 PM CDT 0.1 mg enoxaparin (LOVENOX) injection 70 mg 70 mg (rounded from 73 mg = 0.5 mg/kg 146 kg), subCUT, DAILY, First dose on Tue06/18/25 at 0600, Until Discontinued, Routine, Indication: Prophylaxis of VTE Given 06/18/2025 5:59 AM CDT 70 mg Abdominal Tissue hydroCHLOROthiazide tablet 25 mg 25 mg, Oral, [...] CDT 2 mg HYDROmorphone (PF) (DILAUDID) injection 1 mg [...] Last dose on Tue06/20/25 at 0000, Routine Given 06/18/2025 7:58 AM CDT 10 mg lisinopriL (PRINIVIL) tablet 40 mg 40 mg, [...] Given 06/17/2025 3:03 PM CDT 400 mg naloxone (NARCAN) 0.4 mg/mL injection 0.1-0.4 mg 0.1-0.4 mg, IV, SEE ADMIN INSTRUCTIONS, Starting on Tue06/17/25 at 0717, Until Tue06/18/25 at 2110, Routine, PACU potassium CHLORIDE 20 mEq in dextrose 5 [...] Given 06/17/2025 9:42 PM CDT 25 mg documented in this encounter Active and [...] 12.5 mg by mouth 2 times daily. 2141 (Given - Provider: Madie Freeman LPN) 1015 [...] Until Discontinued, Routine, Indication: Prophylaxis of VTE 0559 (Given - Provider: Madie Freeman LPN) hydroCHLOROthiazide [...] 0725, Routine, Pre-op, Antibiotic Indication: Surgical prophylaxis 06 (New Bag - Provider: Shekhar Terrazas, DONTE)07 (Stopped - Provider: Carter Hassan, DONTE) naloxone (NARCAN) 0.4 mg/mL injection 0.1-0.4 mg 0.1-0.4 mg, IV, SEE ADMIN INSTRUCTIONS, Starting on Tue06/17/25 at 0717, Until Tue06/18/25 at 2110, Routine, PACU pregabalin (LYRICA) capsule 25 mg 25 mg, Oral, EVERY 12 HOURS (BlD), First dose on Tue06/17/25 at 2100, Until Discontinued, Routine, Post-op - Floor 2141 (Given - Provider: Madie Freeman LPN) 1014 (Given - Provider: Carter Hassan, DONTE) pregabalin (LYRICA) capsule 75 mg (COMPLETED) 75 mg, Oral, PRE-PROCEDURE ONCE, 1 dose, Starting on Tue06/17/25 at 0534, Until Tue06/17/25 at 0616, Routine, Pre-op 0616 (Given - Provider: Shekhar Terrazas RN) Continuous Medication Order 06/16/2025 06/17/2025 06/18/2025 lactated ringers infusion (CANCELED) IV, at 100 mL/hr, CONTINUOUS, Starting on Tue06/17/25 at 0545, Until Tue06/17/25 at 1448, Routine, Pre-op 0654 (New Bag - Provider: Shekhar Terrazas, DONTE)0720 (Continue from Pre-Op - Provider: CASPER Odonnell)1448 (Stopped - Provider: Osmany Ford, RN - Comment: [Order ends at this time. Document the following action when infusion is complete: Stopped]) lactated ringers infusion (CANCELED) IV, at 125 mL/hr, POST-PROCEDURE CONTINUOUS, Starting on Tue06/17/25 at 0730, Until Tue06/18/25 at 1302, Routine, PACU 1015 (New Bag - Provider: Stephanie Almaguer, DONTE) 1302 (Stopped - Provider: Carter Hassan, DONTE - Comment: [Order ends at this [...] Routine, PACU 1011 (Given - Provider: Stephanie Almaguer RN) fentaNYL PF (SUBLIMAZE) 50 mcg/mL injection 50 mcg (CANCELED) 50 mcg, IV, POST-PROCEDURE Q 3 MINUTES PRN, 5 doses, Starting on Tue06/17/25 at 0717, Until Tue06/17/25 at 1436, Pain, Mild, Pain, Moderate, Routine, PACU 0921 (Given - Provider: Stephanie Almaguer RN)0934 (Given - Provider: Stephanie Almaguer, DONTE)1012 (Given - Provider: Stephanie Almaguer RN)1036 (Given - Provider: Stephanie Almaguer RN) HYDROmorphone [...] Almaguer, DONTE)0959 (Given - Provider: Stephanie Almaguer, DONTE)1007 (Given - Provider: Stephanie Almaguer, DONTE)1018 (Given - Provider: Stephanie Almaguer, DONTE) HYDROmorphone [...] on Tue06/17/25 at 0534, Until Tue06/17/25 at 1436, Routine, Pre-op, Antibiotic Indication: Surgical prophylaxis And metroNIDAZOLE (FLAGYL) IVPB 500 mg (COMPLETED)Jump to med 500 mg, IV, PRE-PROCEDURE ONCE, 1 dose, Starting on Tue06/17/25 at 0534, Until Tue06/17/25 at 0725, Routine, Pre-op, Antibiotic Indication: Surgical prophylaxis documented in this encounter
[2025-06-22 13:56] VITALS: BP 187/151; PULSE 125; RESP 20; TEMP 36.7; O2SAT 97; BMI 47.2
--- OUTSIDE RECORDS SUMMARY | 2025-06-22 14:02 | XMS_ITS | Encounter Summary ---
Author Organization [facility] Address [address] [facility] [facility] Attn: [place] [address] Care Team Providers Care Traffic Controller Cable Name Role Phone Unavailable Primary Care Provider Unavailabl e Encounter Details Date Type Department Care Team (Latest Contact Info) Description 06/17/2025 Travel Social History Tobacco Use Types Packs/Day Years [...] on file documented as of this encounter Plan of Treatment Upcoming Encounters Date Type Department Care Team (Late st Contact Info) Description 07/03/2025 7:30 AM CDT Appointment [facility] Imaging Services [address] [place] [address] Arelis Matt, LUCAS [address] [address] Zoie Giles FNP [address] [place] [address] 07/12/2025 9:45 AM CDT Office Visit [facility] Gen Spec Surg [place] [address] [address] [facility] [address] [place] [address] Arelis Matt NP [address] [facility] [address] [place] [address] documented as of this encounter Visit Diagnoses Not on filedocumented in this encounter
--- OUTSIDE RECORDS SUMMARY | 2025-06-22 14:02 | XMS_ITS | Encounter Summary ---
Author Organization [facility] Address [address] [place] [address] Care Team Providers Care Sample Taker Operator Name Role Phone Unavailable Primary Care Provider Unavailabl e Encounter Details Date Type Department Care Team (Late st Contact Info) Description 06/18/2025 Results Follow-Up [facility] Gen Spec Surg [place] [address] [address] [facility] [address] [place] [address] Mukul Orozco MD [address] [facility] [address] [place] [address] PATHOLOGY Social History Tobacco Use Types Packs/Day Years [...] on file documented as of this encounter Miscellaneous Notes * Result Encounter Note - Mukul Orozco MD - 06/18/2025 4:41 PM CDT Pathology report reviewed. I accept the report given by the pathologist, it is clinically significant and I will use the information to guide further treatment as needed. This procedure is considered infected at the time of surgery by the attending physician. Level(s) considered infected: peritoneal cavity Results for orders placed or performed during the hospital encounter of 06/17/25 PATHOLOGY Result Value Ref Range CASE REPORT Surgical Pathology Report Case: [id number] Authorizing Provider: Mukul Orozco MD Collected: 06/17/2025 08:31 AM Ordering Location: [facility] Received: 06/17/2025 10:09 AM Operating Room Pathologist: Cristian Thompson MD Specimen: Colon, sigmoid FINAL DIAGNOSIS A. Sigmoid colon, segmental resection - Diverticular disease with perforated acute diverticulitis and mural abscess - Viable resection margins - 2 benign lymph nodes Cristian Thompson MD [id number] GROSS DESCRIPTION A. Received in a container of formalin labeled Amor -sigmoid colon is a 34 cm in length by 4.4cm in diameter segment of sigmoid colon/proximal rectum. [...] fat contains 2 identifiable enlarged lymph nodes. [employer] sections are submitted as follows: A1-proximal margin, en face A2-distal margin, en face R5-R8-qavd-thickness cross-section of perforated diverticulum, bisected (bisected point inked blue) A5-thickened bowel wall with abscess A6-enlarged lymph nodes, 2 Grossed by: Arelis Cornejo MS, PA (ASC)CM OPERATIVE PROCEDURE 1: SIGMOID COLECTOMY HAND ASSISTED LAPAROSCOPIC 2: SPLENIC FLEXURE MOBILIZATION LAPAROSCOPIC 3: PROCTOSCOPY CLINICAL INFORMATION Colovesical fistula; Diverticulitis N32.1-Colovesical fistula K57.92-Diverticulitis COMMENT The Grovo voice-activated dictation system may have been used [...] determined by the [facility] of [facility] in compliance with CLIA'88 regulations. Some of these tests rely on the use of analyte specific reagents and are subject to specific labeling requirements by the FDA. All controls show appropriate reactivity. This testing was developed by the [facility] of [facility]. It has not been cleared or approved by the FDA. The FDA has determined that such clearance or approval is not necessary. documented in this encounter Plan of Treatment Upcoming Encounters Date Type Department Care Team (Late st Contact Info) Description 07/03/2025 7:30 AM CDT Appointment [facility] Imaging Services [address] [place] [address] Arelis Matt NP [address] [address] Zoie Giles FNP [address] [place] [address] 07/12/2025 9:45 AM CDT Office Visit [facility] Gen Spec Surg [place] [address] [address] Arelis Matt NP [address] [address] documented as of this encounter Visit Diagnoses Not on filedocumented in this encounter
--- OUTSIDE RECORDS SUMMARY | 2025-06-22 14:02 | XMS_ITS | Encounter Summary ---
Author Organization [facility] Address [address] [place] [address] Care Team Providers Care Voucher Clerk Name Role Phone Unavailable Primary Care Provider Unavailabl e Reason for Referral * Radiology Services (Routine) - Authorized Specialty Diagnoses / Procedures Referred By Contpaulette t Referred To Contact Radiology Diagnoses Colovesical fistula Procedures XR CYSTOGRAM Arelis Matt NP [address] [address] Phone: tel: fax: [facility] [address] [place] [address] Phone: tel: fax: Referral ID Status Reason Start Date Expiration Date V isits Requested Visits Authorized [id number] Authorized 06/17/2025 07/18/2026 1 1 Encounter Details Date Type Department Care Team (Late st Contact Info) Description 06/17/2025 Orders Only [facility] Gen Spec Surg [place] [facility] [address] [address] Arelis Matt NP [address] [address] Colovesical fistula (Primary Dx) Social History Tobacco Use Types Packs/Day Years [...] Info) Description 07/03/2025 7:30 AM CDT Appointment [facility] Imaging Services [address] [place] [address] Arelis Matt, LUCAS [address] [address] Zoie Giles, ELIJAH [address] [place] [address] 07/12/2025 9:45 AM CDT Office Visit [facility] Gen Spec Surg [address] [address] Arelis Matt NP [address] [place] [address] Scheduled Orders Name Type Priority Associated Diagnoses Orde r Schedule XR CYSTOGRAM Imaging Routine Colovesical fistula Expected: 06/27/2025, Expires: 06/17/2026 documented as of this encounter Visit Diagnoses Diagnosis Colovesical fistula- Primary Intestinovesical fistula documented in this encounter
--- OUTSIDE RECORDS SUMMARY | 2025-06-22 14:03 | XMS_ITS | Encounter Summary ---
Author Organization [facility] Address [address] [place] [address] Care Team Providers Care Shirt Bander Name Role Phone Unavailable Primary Care Provider Unavailabl e Encounter Details Date Type Department Care Team (Late st Contact Info) Description 06/18/2025 External Device Data [facility] ABSTRACTION Provider, Abstract NO ADDRESS ON FILE Social History Tobacco Use Types Packs/Day Years [...] Info) Description 07/03/2025 7:30 AM CDT Appointment [facility] Imaging Services [address] [place] [address] Arelis Matt, LUCAS [address] [address] Zoie Giles FNP [address] [place] [address] 07/12/2025 9:45 AM CDT Office Visit [facility] Gen Spec Surg [place] [address] [facility] [address] [place] [address] Arelis Matt NP [address] [facility] [address] [place] [address] documented as of this encounter Visit Diagnoses Not on filedocumented in this encounter
--- OUTSIDE RECORDS SUMMARY | 2025-06-22 14:03 | XMS_ITS | Encounter Summary ---
Author Organization [facility] Address [address] [place] [address] Care Team Providers Care Blend Plant Operator Name Role Phone Unavailable Primary Care [...] Info) Description 07/03/2025 7:30 AM CDT Appointment [facility] Imaging Services [address] [place] [address] Arelis Matt, LUCAS [address] [address] Zoie Giles FNP [address] [place] [address] 07/12/2025 9:45 AM CDT Office Visit [facility] Gen Spec Surg [place] [address] [facility] [address] [place] [address] Arelis Matt NP [address] [facility] [address] [place] [address] documented as of this encounter Visit Diagnoses Not on filedocumented in this encounter
--- OUTSIDE RECORDS SUMMARY | 2025-06-22 14:03 | XMS_ITS | Clinical Summary ---
Author Organization [facility] [place] Address [address] [place] [address] Phone Care Team Providers Care Ccnp Name Role Phone Unavailable Primary Care Provider Unavailabl e Allergies No known active allergies Medications amLODIPine (NORVASC) 10 mg tablet Take 1 Tablet by mouth daily. 04/30/20 25 Active hydroCHLOROthi azide 25 mg tablet Take 1 Tablet by mouth daily. 04/01/20 25 Active lisinopriL (PRINIVIL) 40 mg tablet Take 1 Tablet by mouth daily. 04/30/20 25 Active CARVEDILOL ORAL Take 12.5 mg by mouth 2 times daily. Active dicyclomine (BENTYL) 10 mg capsule Take 1 Capsule (10 mg) by mouth 4 times daily as needed (abdominal pain). 240 Capsule 3 05/06/20 25 Active ondansetron (ZOFRAN ODT) 4 mg Tablet, Rapid Dissolve Take 1 Tablet (4 mg) by mouth every 6 hours as needed for Nausea/Emesis. Dissolve tablet on top of tongue, then swallow with saliva. 6 Tablet 06/06/20 25 Active cloNIDine HCL (CATAPRES) 0.1 mg tablet Take 0.1 mg by mouth 2 times daily as needed for Blood Pressure. Active HYDROmorphone (DILAUDID) 2 mg tabletIndicati ons:Diverticul itis Take 1 Tablet (2 mg) by mouth every 4 hours as needed for Pain. Max Daily Amount: 12 mg 20 Tablet 5 6:53 PM CDT 06/18/20 25 Active naloxone (NARCAN) 4 mg/spray [place], Non-Aerosol EMERGENCY USE ONLY: Administer 1 spray (4 mg) in one nostril one time. May repeat in alternating nostrils every 2-3 min until responsive or EMS arrives. 2 Each 3 5 6:53 PM CDT 06/18/20 Active ciprofloxacin HCl (Cipro) 500 mg tablet Take 1 Tablet (500 mg) by mouth 2 times daily for 5 days. 10 Tablet 06/18/20 25 Active metroNIDAZOLE (FLAGYL) 500 mg tablet Take 1 Tablet (500 mg) by mouth 3 times daily for 5 days. 15 Tablet 06/18/20 25 Active PEG-Electrolyt e Soln (NULYTELY) 420 g Recon Soln Take 4,000 mL by mouth one time only for 1 dose. 4000 mL 05/15/20 25 Discontinued neomycin (MYCIFRADIN) 500 mg tablet The day before your surgery take two tablets by mouth at 1 pm, take two tablets by mouth at 2 pm, and take two tablets by mouth at 10 pm. 6 Tablet 06/06/20 Discontinued sodium, potassium and magnesium SULFATES (Suprep Bowel Prep Kit) 17.5-3.13-1.6 gram Recon Soln Follow directions from the clinic 354 mL 06/06/20 Discontinued metroNIDAZOLE (FLAGYL) 500 mg tablet The day before your surgery take 1 tablet by mouth at 1 pm, take 1 tablet by mouth at 2 pm, and take 1 tablet by mouth at 10 pm. 3 Tablet 06/06/20 25 Discontinued oxyCODONE-acet aminophen (Percocet) 5-325 mg tabletIndicati ons:Colovesica l fistula,Divert iculitis Take 1 Tablet by mouth every 4 hours as needed for Pain, Moderate. Max Daily Amount: 6 Tablets 30 Tablet 06/17/20 25 025 Discontinued oxyCODONE-acet aminophen (PERCOCET) 10-325 mg TabletIndicati ons:Colovesica l fistula,Divert iculitis,Diver ticulitis Take 1 Tablet by mouth every 6 hours as needed for Pain, Severe. Max Daily Amount: 4 Tablets 30 Tablet 06/18/20 25 025 Discontinued naloxone (NARCAN) 4 mg/spray [place], Non-Aerosol EMERGENCY USE ONLY: Administer 1 spray (4 mg) in one nostril one time. May repeat in alternating nostrils every 2-3 min until responsive or EMS arrives. 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 06/17/2025 Colovesical fistula 06/17/2025 Encounters Date Type Department Care Team Description 06/19/2025 External Device Data [facility] ABSTRACTION Provider, Abstract 06/18/2025 External Device Data [facility] ABSTRACTION Provider, Abstract 06/18/2025 External Device Data [facility] ABSTRACTION Provider, Abstract 06/18/2025 Results Follow-Up [facility] Spec Surg [facility] [address] [phone] Mukul Orozco MD PATHOLOGY 06/17/2025 7:20 AM CDT Anesthesia Event [facility] Operating Room [address] [place] [address] Shon Morrow II, DO 06/17/2025 7:20 AM CDT - 06/17/2025 9:39 AM CDT Surgery [facility] Operating Room [address] [place] [phone] Mukul Orozco MD SIGMOID COLECTOMY HAND ASSISTED LAPAROSCOPIC 06/17/2025 5:26 AM CDT - 06/18/2025 7:09 PM CDT Hospital Encounter [facility] 3B Surgical [address] [place] [address] Mukul Orozco MD Diverticulitis Discharge Disposition: Home or Self Care 06/17/2025 Travel 06/17/2025 Orders Only [facility] Gen Spec Surg [facility] [address] [phone] Arelis Matt NP Colovesical fistula (Primary Dx) 06/14/2025 Telephone [facility] Gen Spec S[facility] [address] [phone] Muukl Orozco MD Check In Time (06/17/25) 06/06/2025 Orders Only [facility] [address] [place] [address] Mukul Orozco MD 06/05/2025 8:15 AM CDT Office Visit [facility] [address] [place] [address] Mukul Orozco MD Colovesical fistula (Primary Dx); Diverticulitis 05/24/2025 8:39 AM CDT Anesthesia Event [facility] Endoscopy [address] [place] [address] Selena Man MD Evans, Lilia Botello, [facility] 05/24/2025 8:20 AM CDT - 05/24/2025 8:40 AM CDT Surgery [facility] Endoscopy [address] [place] [address] Sharif Marshall MD COLONOSCOPY 05/24/2025 6:56 AM CDT - 05/24/2025 9:39 AM CDT Hospital Encounter [facility] Endoscopy [address] [place] [phone] Sharif Marshall MD Discharge Disposition: Home or Self Care 05/14/2025 10:00 AM CDT Office Visit [facility] Urology [place] [address] [address] [facility] [address] [place] [address] Sharif Marshall MD Johnson, Robert D, MD Pneumaturia (Primary Dx) 05/10/2025 10:00 AM CDT Procedure visit [address] [address] 05/08/2025 External Device Data [facility] ABSTRACTION Provider, Abstract 05/08/2025 External Device Data [facility] ABSTRACTION Provider, Abstract 05/08/2025 External Device Data [facility] ABSTRACTION Provider, Abstract 05/07/2025 External Device Data [facility] ABSTRACTION Provider, Abstract 05/06/2025 8:40 AM CDT Office Visit [facility] Gastroenterology[address] [place] [phone] Sharif Marshall MD Alternating constipation and diarrhea (Primary Dx); Abdominal pain, unspecified abdominal location; Pneumaturia; History of diverticulitis 05/06/2025 [facility] [place] [phone] Amanda Heller RN 04/08/2025 Orders Only [address] [place] [phone] Holland Kothari MD Diverticulosis of intestine without perforation or abscess without bleeding (Primary Dx) from Last 3 Months Social History Tobacco Use Types Packs/Day Years [...] on file Sexual Orientation Not on file Last Filed Vital Signs Vital Sign Reading [...] Mass Index 47.43 06/17/2025 5:44 AM CDT Plan of Treatment Upcoming Encounters Date Type Department Care Team (Late st Contact Info) Description 07/03/2025 7:30 AM CDT Appointment [facility] Imaging Services [address] [place] [address] Arelis Matt, VELVET CUTTER [address] [facility] [address] [place] [address] Zoie Giles, RELIGIOUS LEADER [address] [place] [address] 07/12/2025 9:45 AM CDT Office Visit [facility] Gen Spec Surg [address] [address] Arelis Matt, VELVET CUTTER [address] [address] Health Maintenance Due Date Last Done Comments Pre-Diabetes and Diabetes Screening 1984 DTAP/TDAP/TD VACCINES (6 - Tdap) 1995 02/17/1990, 11/09/1985, 01/05/1985, Additional history exists HEPATITIS B VACCINES (1 of 3 - 19+ 3-dose series) 2003 HPV VACCINES (1 - 3-dose SCD M series) 2011 INFLUENZA VACCINE (#1) 2025 Procedures Procedure Name Priority Date/Time Associated Diagnosis Comments TELEMETRY REPORT 06/19/2025 2:31 PM CDT BASIC METABOLIC PANEL Routine 06/18/2025 4:37 AM CDT CBC WITH DIFFERENTIAL Routine 06/18/2025 4:37 AM CDT POC GLUCOSE Routine 06/17/2025 9:37 AM CDT PATHOLOGY Pathology 06/17/2025 8:31 AM CDT Colovesical fistula Diverticulitis AZ ANESTHESIA BLOCK PB PLACEHOLDER CHARGE Routine 06/17/2025 8:20 AM CDT AZ ANES INSERT ENDOTRACHEAL AIRWAY Routine 06/17/2025 8:12 AM CDT AZ ANRCT XM SURG REQ ANES GENERAL SPI/EDRL DX 06/17/2025 7:20 AM CDT Colovesical fistula Diverticulitis AZ LAPS MOBLJ SPLENIC FLXR PFRMD W/PRTL COLECTOMY 06/17/2025 7:20 AM CDT Colovesical fistula Diverticulitis AZ LAPS COLECTMY PRTL W/COLOPXTSTMY LW ANAST W/CLST 06/17/2025 7:20 AM CDT Colovesical fistula Diverticulitis AZ LAPS COLECTOMY PRTL W/COLOPXTSTMY LW ANAST 06/17/2025 7:20 AM CDT Colovesical fistula Diverticulitis AZ LAPAROSCOPY COLECTOMY PARTIAL W/ANASTOMOSIS 06/17/2025 7:20 AM CDT Colovesical fistula Diverticulitis BASIC METABOLIC PANEL Routine 06/17/2025 6:16 AM CDT CBC WITHOUT DIFFERENTIAL Stat 06/17/2025 6:16 AM CDT TYPE AND SCREEN Stat 06/17/2025 6:12 AM CDT VERIFICATION BLOOD GROUP Stat 06/17/2025 6:08 AM CDT COLONOSCOPY REPORT 05/24/2025 9:11 AM CDT PATHOLOGY Pathology 05/24/2025 8:59 AM CDT ANESTHESIA AIRWAY Routine 05/24/2025 8:47 AM CDT [place] COLONOSCOPY FLX DX W/COLLJ SPEC WHEN PFRMD 05/24/2025 8:20 AM CDT Z87.19 (ICD-10-CM) - V12.70 (ICD-9-CM) - History of diverticulitis, change in bowel habits Case Notes Colonoscopy PCP Holland Marshall pt. Pt.weigh 330 lbs BMI 48,73 Z87.19 (ICD-10-CM) - V12.70 (ICD-9-CM) - History of diverticulitis, change in bowel habits [facility] URINE CULTURE Routine 05/14/2025 10:12 AM CDT Pneumaturia POC URINALYSIS MICROSCOPY ONLY Routine 05/14/2025 10:10 AM CDT Pneumaturia POC URINALYSIS DIPSTICK AUTOMATED Routine 05/14/2025 10:09 AM CDT Pneumaturia ELASTASE,PANCREATIC (EL-1),FECAL Routine 05/10/2025 10:01 AM CDT Alternating constipation and diarrhea Abdominal pain, unspecified abdominal location Pneumaturia History of diverticulitis CALPROTECTIN, FECAL Routine 05/10/2025 10:01 AM CDT Alternating constipation and diarrhea Abdominal pain, unspecified abdominal location Pneumaturia History of diverticulitis C. DIFFICILE DETECTION Routine 10:01 AM CDT Alternating constipation and diarrhea Abdominal pain, unspecified abdominal location Pneumaturia History of diverticulitis GIARDIA & CRYPTOSPORIDIUM ANTIGEN Routine 05/10/2025 10:01 AM CDT Alternating constipation and diarrhea Abdominal pain, unspecified abdominal location Pneumaturia History of diverticulitis STOOL CULTURE W/SHIGA TOXIN Routine 05/10/2025 10:01 AM CDT Alternating constipation and diarrhea Abdominal pain, unspecified abdominal location Pneumaturia History of diverticulitis C-REACTIVE PROTEIN Routine 05/06/2025 9:19 AM CDT Alternating constipation and diarrhea Abdominal pain, unspecified abdominal location Pneumaturia History of diverticulitis SEDIMENTATION RATE Routine 05/06/2025 9:19 AM CDT Alternating constipation and diarrhea Abdominal pain, unspecified abdominal location Pneumaturia History of diverticulitis TRANSGLUTAMINASE IGA ANTIBODY Routine 05/06/2025 9:19 AM CDT Alternating constipation and diarrhea Abdominal pain, unspecified abdominal location Pneumaturia History of diverticulitis IGA Routine 05/06/2025 9:19 AM CDT Alternating constipation and diarrhea Abdominal pain, unspecified abdominal location Pneumaturia History of diverticulitis from Last 3 Months Results * TELEMETRY REPORT (06/19/2025 2:31 PM CDT) us Provider Scanning ECG ORDERABLES Final Result * (ABNORMAL) CBC WITH DIFFERENTIAL (06/18/2025 4:37 AM CDT) WBC 11.1(H) 4.5 - 11.0 K/uL 06/18/2025 5:55 AM CDT [facility] RBC 4.88 4.60 - 6.20 M/uL 06/18/2025 5:55 AM CDT [facility] HEMOGLOBIN 14.2 14.0 - 18.0 g/dL 06/18/2025 5:55 AM CDT [facility] HEMATOCRIT 41.8 41.0 - 53.0 % 06/18/2025 5:55 AM CDT [facility] MCV 85.7 84.0 - 103.0 fL 06/18/2025 5:55 AM CDT [facility] MCH 29.1 27.0 - 34.0 pg 06/18/2025 5:55 AM CDT [facility] MCHC 34.0 30.0 - 35.0 g/dL 06/18/2025 5:55 AM CDT [facility] PLATELETS 244 140 - 440 K/uL 06/18/2025 5:55 AM CDT [facility] MPV 9.4 8.9 - 12.8 fL 06/18/2025 5:55 AM [facility] RDW 13.4 11.0 - 14.5 % 06/18/2025 5:55 AM [facility] RDW-STDEV 41.8 37.0 - 54.0 fL 06/18/2025 5:55 AM [facility] NEUTROPHILS 69 42 - 75 % 06/18/2025 5:55 AM [facility] LYMPHOCYTES 20(L) 24 - 44 % 06/18/2025 5:55 AM T [facility] MONOCYTES 9 2 - 10 % 06/18/2025 5:55 AM [facility] EOSINOPHILS 2 0 - 7 % 06/18/2025 5:55 AM [facility] BASOPHILS 0 0 - 1 % 06/18/2025 5:55 AM [facility] IMMATURE GRANULOCYTES 0 0 - 2 % 06/18/2025 5:55 AM [facility] NEUTROPHIL ABSOLUTE 7.66 2.00 - 8.00 K/uL 06/18/2025 5:55 AM [facility] LYMPHOCYTE ABSOLUTE 2.22 1.20 - 4.00 K/uL 06/18/2025 5:55 AM [facility] MONOCYTE ABSOLUTE 0.95(H) 0.10 - 0.60 K/uL 06/18/2025 5:55 AM [facility] EOSINOPHIL ABSOLUTE 0.20 0.00 - 0.70 K/uL 06/18/2025 5:55 AM [facility] BASOPHILS ABSOLUTE 0.05 0.00 - 0.20 K/uL 06/18/2025 5:55 AM [facility] IMMATURE GRANULOCYTES ABSOLUTE 0.05 0.00 - 0.10 K/uL 06/18/2025 5:55 AM [facility] SMEAR REVIEWED: NN - No Action Needed 06/18/2025 5:55 AM [facility] Blood Venipuncture / Unknown 06/18/2025 4:37 AM CDT 06/18/2025 5:25 AM CDT us Mukul Orozco MD HEMATOLOGY ORDERABLES Final Res ult [facility] YUSRA # [id number] [address] [address] [place] [address] * (ABNORMAL) BASIC METABOLIC PANEL (06/18/2025 4:37 AM CDT) Only the most recent of2 resultswithin the time period is included. SODIUM 136 136 - 145 mmol/L 06/18/2025 6:01 AM [facility] POTASSIUM 4.2 3.5 - 5.1 mmol/L 06/18/2025 6:01 AM [facility] CHLORIDE 101 98 - 107 mmol/L 06/18/2025 6:01 AM [facility] CO2 26 22 - 29 mmol/L 06/18/2025 6:01 AM [facility] CALCIUM 8.1(L) 8.6 - 10.0 mg/dL 06/18/2025 6:01 AM [facility] BUN 13 6 - 20 mg/dL 06/18/2025 6:01 AM [facility] CREATININE 0.93 0.67 - 1.17 mg/dL 06/18/2025 6:01 AM [facility] GLUCOSE 186(H) 74 - 99 mg/dL 06/18/2025 6:01 AM [facility] GFR >60 >=60 mL/min/1.7 3 sq meter 06/18/2025 6:01 AM [facility] Comment:eGFR calculated with 2020 CKD-EPI equation. Vegetarian diet, extremely high or low muscle mass, and may affect results. Cystatin C with Glomerular Filtration Rate is a suitable alternative for these patients. ANION GAP 9 9 - 20 mmol/L 06/18/2025 6:01 AM [facility] Blood Venipuncture / Unknown 06/18/2025 4:37 AM CDT 06/18/2025 5:24 AM CDT Mukul Orozco MD CHEMISTRY ORDERABLES Final Resu lt Performing Organization Address [facility] Co de Phone Number [facility] CLIA # [id number] [address] [address] [place] [address] * (ABNORMAL) POC GLUCOSE (06/17/2025 9:37 AM CDT) GLUCOSE POC 127(H) 74 - 99 mg/dL 06/17/2025 9:37 AM CDT [facility] SPECIMEN SOURCE, GLUCOSE POC Capillary 06/17/2025 9:37 AM CDT [facility] Blood, whole 06/17/2025 9:37 AM CDT 06/17/2025 9:45 AM CDT Mukul Orozco MD POINT OF CARE TESTING Final Res ult Performing Organization Address [facility] Co de Phone Number [facility] CLIA # [id number] [facility] [address] [address] * PATHOLOGY (06/17/2025 8:31 AM CDT) Only the most recent of2 resultswithin the time period is included. CASE REPORT Surgical Pathology Report Case: [id number] Authorizing Provider: Mukul Orozco MD Collected: 06/17/2025 08:31 AM Ordering Location: [facility] Received: 06/17/2025 10:09 AM Operating Room Pathologist: Cristian Thompson MD Specimen: Colon, sigmoid 2:05 PM CDT [facility] FINAL DIAGNOSIS A. Sigmoid colon, segmental resection - Diverticular disease with perforated acute diverticulitis and mural abscess - Viable resection margins - 2 benign lymph nodes Cristian Thompson MD [id number] 5 2:05 PM T [facility] at 1405 CDT GROSS DESCRIPTION A. Received in a container of formalin labeled [place] -sigmoid colon is a 34 cm in [...] fat contains 2 identifiable enlarged lymph nodes. Runway Model sections are submitted as follows: A1-proximal margin, en face A2-distal margin, en face R4-M2-phqw-thickness cross-section of perforated diverticulum, bisected (bisected point inked blue) A5-thickened bowel wall with abscess A6-enlarged lymph nodes, 2 Grossed by: Arelis Cornejo MS, ISAAC ([facility]) 5 2:05 PM [facility] OPERATIVE PROCEDURE 1: SIGMOID COLECTOMY HAND ASSISTED LAPAROSCOPIC 2: SPLENIC FLEXURE MOBILIZATION LAPAROSCOPIC 3: PROCTOSCOPY 5 2:05 PM [facility] CLINICAL INFORMATION Colovesical fistula; Diverticulitis N32.1-Colovesical fistula K57.92-Diverticulitis 5 2:05 PM [facility] COMMENT The [employer] voice-activated dictation system may have been used [...] determined by the Diagnostic [facility]ohist[facility] of [facility] in compliance with CLIA'88 regulations. Some of these tests rely on the use of analyte specific reagents and are subject to specific labeling requirements by the FDA. All controls show appropriate reactivity. This testing was developed by the [facility]ohist[facility] of [facility]. It has not been cleared or approved by the FDA. The FDA has determined that such clearance or approval is not necessary. 2:05 PM CDT [facility] Tissue SIGMOID COLON STRUCTURE / Unknown Collection / Unknown 06/17/2025 8:31 AM CDT 06/17/2025 10:09 AM CDT us Mukul Orozco MD PATHOLOGY/CYTOLOGY ORDERABLES [id number] [address] [place] [address] * [place] ANESTHESIA BLOCK PB PLACEHOLDER CHARGE (06/17/2025 8:20 [...] Approach: Midline Location: L3-4 Injection Technique: Single-shot [place] Identification: palpation technique Number of Attempts: 2 Spinal Needle Needle type: Pencil-tip Needle gauge: 25 G Needle length: 15 cmCSF visualized Assessment No paresthesia Outcome: Complete Additional Notes Sterile prep/drape, Unsuccessful L3/4 attempt w/ 10cm needle, long Benja then used same level without CSF x1, switched L4/5 long needle x1, no CSF, procedure aborted, no paresthesias or pain, tolerated well. Shon Morrow II, DO PROCEDURE/MINOR CHEEK RGICAL ORDERABLES Final Result * [place] ANES INSERT ENDOTRACHEAL AIRWAY (06/17/2025 8:12 AM CDT) Narrative Roge White AA - 06/17/2025 8:12 AM CDT Roge White AA 06/17/2025 8:13 AM Airway Date/Time: 06/17/2025 8:12 AM Location: OR Plan: routine intubation Patient Identity Confirmed by: Verbally with patient and armband Staffing Performed: FUNERAL PROFESSIONAL/CAA Authorized by: Shon Morrow II, DO Performed [...] Additional Procedure Information: atraumatic and dentition unchanged us Shon Morrow II, PROCEDURE/MINOR CHEEK RGICAL ORDERABLES Final Result * (ABNORMAL) CBC WITHOUT DIFFERENTIAL (06/17/2025 6:16 AM CDT) [facility] WBC 12.7(H) 4.5 - 11.0 K/uL 06/17/2025 6:40 AM CDT [facility] RBC 5.24 4.60 - 6.20 M/uL 06/17/2025 6:40 AM CDT [facility] HEMOGLOBIN 15.4 14.0 - 18.0 g/dL 06/17/2025 6:40 AM CDT [facility] HEMATOCRIT 44.3 41.0 - 53.0 % 06/17/2025 6:40 AM CDT [facility] MCV 84.5 84.0 - 103.0 fL 06/17/2025 6:40 AM CDT [facility] MCH 29.4 27.0 - 34.0 pg 06/17/2025 6:40 AM CDT [facility] MCHC 34.8 30.0 - 35.0 g/dL 06/17/2025 6:40 AM CDT [facility] PLATELETS 288 140 - 440 K/uL 06/17/2025 6:40 AM T [facility] MPV 8.6(L) 8.9 - 12.8 fL 06/17/2025 6:40 AM T [facility] RDW 13.4 11.0 - 14.5 % 06/17/2025 6:40 AM T [facility] RDW-STDEV 41.5 37.0 - 54.0 fL 06/17/2025 6:40 AM T [facility] Blood Venipuncture / Unknown 06/17/2025 6:16 AM CDT 06/17/2025 6:23 AM CDT us Mukul Orozco MD HEMATOLOGY ORDERABLES Final Res ult [facility] CLIA # [id number] [address] [place] [id number] * TYPE AND SCREEN (06/17/2025 6:12 AM CDT) ABO GROUP A 06/17/2025 7:13 AM CDT [facility] RH (D) TYPE Negative 06/17/2025 7:13 AM CDT [facility] ANTIBODY SCREEN Negative 06/17/2025 7:13 AM CDT [facility] Blood Venipuncture / Unknown 06/17/2025 6:12 AM CDT 06/17/2025 6:20 AM CDT Mukul Orozco MD BLOOD BANK ORDERABLES Edited Re sult - Final Performing Organization Address [facility] Co de Phone Number [facility] CLIA#[id number] [address] [place] [address], * VERIFICATION BLOOD GROUP (06/17/2025 6:08 AM CDT) ABO GROUP A 06/17/2025 7:09 AM CDT [facility] RH (D) TYPE Negative 06/17/2025 7:09 AM CDT [facility] Blood Venipuncture / Unknown 06/17/2025 6:08 AM CDT 06/17/2025 6:14 AM CDT Mukul Orozco MD BLOOD BANK ORDERABLES Final Res ult Performing Organization Address [facility] de Phone Number [facility] CLIA#[id number] [address] [place] [address], * COLONOSCOPY REPORT (05/24/2025 9:11 AM CDT) Narrative Procedure Note Sharif Marshall MD - 05/24/2025 9:11 AM CDT [facility] GI Patient Name: Martínez Chinchilla Procedure Date: 05/24/2025 Date of : 1985 Admit Type: Outpatient Age: 39 Attending MD: Sharif Marshall MD, Procedure: Colonoscopy Indications: Recurrent diverticulitis, alternating diarrhea and constipation, suspicion for colovesicular fistula Providers: Sharif Marshall MD Referring MD: Holland Kothari Medicines: Monitored Anesthesia Care Complications: No immediate complications. Estimated blood loss: Minimal. Procedure: After I obtained informed consent, the scope was passed under direct vision. Throughout the procedure, the patient's blood pressure, pulse, and oxygen saturations were monitored continuously. The Colonoscope was introduced through the anus and advanced to the terminal ileum. Estimated Blood Loss: Estimated blood loss: none. Findings: The scope was advanced to the ileum and withdrawn. There was benign lymphoid hyperplasia. The sigmoid colon was characterized by hypertrophy, scattered small diverticula, and mild stenosis. Biopsies were taken. The remainder of the visualized colon mucosa throughout was unremarkable, biopsies were taken. There were grade 1 internal hemorrhoids that were not actively bleeding(s) Impression: Hypertrophic stenotic sigmoid colon. No clear fistula seen. No definite inflammation. Biopsies taken Benign lymphoid hyperplasia of the ileum Grade 1 internal hemorrhoids Otherwise unremarkable colon mucosa, biopsy Recommendation: Follow-up with colorectal surgery as planned Sharif Marshall MD 05/24/2025 9:10:58 AM Number of Addenda: 0 Note Initiated On: 05/24/2025 7:48 AM Scope Withdrawal Time 0 hours 5 minutes 43 seconds Scope In: 8:50:28 AM Scope Out: 9:06:04 AM [address] [place], [place] Sharif Marshall MD GI PROCEDURE ORDERABLES F inal Result * Airway (05/24/2025 8:47 AM CDT) Narrative Lilia Alvarado CRNA - 05/24/2025 8:47 AM CDT Lilia Alvarado CRNA 05/24/2025 8:48 AM Airway Date/Time: 05/24/2025 8:47 AM Location: Other [facility]ARY Non OR Location: GI Plan: elective intubation Patient Identity Confirmed by: Verbally with patient Airway: not difficult Staffing Performed: Anesthesiologist (/) and FUNERAL PROFESSIONAL/CAA Authorized by: Selena Man MD Performed by: Lilia Alvarado CRNA Indications and Patient Condition: Indications for Airway Management: Anesthesia Sedation Level: sedation Final Airway Details: Final Airway Type: Mask Selena Man MD PROCEDURE/MINOR SURGICAL ORDE RABYADI Final Result * (ABNORMAL) URINE CULTURE (05/14/2025 10:12 AM CDT) URINE CULTURE SEE NOTE(A) [facility] Comment: CULTURE, URINE, ROUTINE Micro Number: [id number] Test Status: Final Specimen Source: Urine, clean catch Specimen Quality: Adequate Result: Greater than 100,000 CFU/mL of Escherichia coli E.coli INT STALIN AMOX/CLAVULANATE R >=32 AMP/SULBACTAM R >=32 CEFAZOLIN R 16 1 CEFEPIME S <=0.12 CEFTAZIDIME S <=0.5 CEFTRIAXONE S <=0.25 CIPROFLOXACIN S <=0.06 GENTAMICIN S <=1 IMIPENEM S <=0.25 LEVOFLOXACIN S <=0.12 MEROPENEM S <=0.25 NITROFURANTOIN I 64 PIP/TAZOBACTAM R >=128 TRIMETHOPRIM/SULFA S <=20 S = Susceptible I = Intermediate R = Resistant NS = Not susceptible SDD = Susceptible Dose Dependent * = Not Tested NR = Not Reported NN = See Therapy Comments THERAPY COMMENTS Note 1: For uncomplicated UTI caused by E. coli, K. pneumoniae or P. mirabilis: Cefazolin is susceptible if STALIN <32 mcg/mL and predicts susceptible to the oral agents cefaclor, cefdinir, cefpodoxime, cefprozil, cefuroxime, cephalexin and loracarbef. Test Performed at: [facility] [facility] [address] [place] [address] Brandi Valverde MD Urine URINE SPECIMEN OBTAINED BY CLEAN CATCH PROCEDURE / Unknown 05/14/2025 10:12 AM CDT 05/14/2025 6:01 PM CDT Rosalio Belle MD MICROBIOLOGY - GENERAL ORDER JOE Final Result [facility] [phone] [facility] [address] [place] [address] * (ABNORMAL) POC URINALYSIS MICROSCOPY ONLY (05/14/2025 10:10 AM CDT) WBC UA POC 6-10(A) 0 - 2 /hpf [facility] [place] RBC UA POC 3-5(A) 0 - 2 /hpf [facility] BACTERIA UA POC 3+(A) Negative /hpf [facility] [place] YEAST POC [facility] [place] TRICHOMONAS POC [facility] N[place] SPERMATOZOA POC [facility] HYALINE CAST POC [facility] RBC CAST [facility] GRANULAR [facility]ST POC [facility] AMORPHOUS CRYSTAL POC [facility] TRIPLE PHOS [facility] URIC ACID CRYSTAL POC [facility] CALCIUM OXALATE, URINE POC [facility] [place] COMMENT, URINE POC [facility] EPITHELIAL CELLS UA POC [facility] Urine 05/14/2025 10:1 0 AM CDT Rosalio Belle MD POINT OF CARE TESTING Final Result [facility] CLIA# [id number] [address] [place] [id number], * (ABNORMAL) POC URINALYSIS DIPSTICK AUTOMATED (05/14/2025 10:09 AM CDT) COLOR UA POC Staci(A) Pale to Dark Yellow [facility] CLARITY UA POC Slightly Cloudy(A) Clear, Other [facility] [place] GLUCOSE UA POC Negative Negative, Normal [facility] BILIRUBIN UA POC Negative Negative [facility] [place] KETONES UA POC Negative Negative [facility] [place] SPECIFIC GRAVITY UA POC 1.020 1.000 - 1.030 [facility] BLOOD UA POC 2+(A) Negative [facility] PH UA POC 7.0 5.0 - 8.0 [facility] IC [facility] PROTEIN UA POC Negative Negative [facility] [place] UROBILINOGEN UA POC 0.2 <2.0 mg/dL [facility] [place] NITRITE UA POC Negative Negative [facility] [place] LEUKOCYTE ESTERASE UA POC 1+(A) Negative [facility] [place] KIT LOT NUMBER POC [phone] [facility] [place] KIT EXP DATE POC 4.30. [facility] [place] Urine 05/14/2025 10:0 9 AM CDT us Rosalio Belle MD POINT OF CARE TESTING Final Result [facility] CLIA# [id number] [address] [place] [address], * CALPROTECTIN, FECAL (05/10/2025 10:01 AM CDT) CALPROTECTIN, FECAL 70 mcg/g [facility], Comment: Reference Range: <50 Normal 50-120 Borderline >120 Elevated Calprotectin in Crohn's disease and ulcerative colitis can be five to several thousand times above the reference population (50 mcg/g or less). Levels are usually 50 mcg/g or less in healthy patients and with irritable bowel syndrome. Repeat testing in 4-6 weeks is suggested for borderline values. Test Performed at: [facility], [address] [place] [address] Sima Torres MD,PhD,SCOTT Stool STOOL SPECIMEN / Unknown 05/10/2025 10:01 AM CDT 05/11/2025 2:57 AM CDT us Sharif Marshall MD BODY FLUIDS AND STOOLS Fi nal Result [facility] [phone] [facility], [address] [place] [address] * ELASTASE,PANCREATIC (EL-1),FECAL (05/10/2025 10:01 AM CDT) PANCREATIC ELASTASE-1 793 >200 mcg/g [facility], Comment: E-1 mcg/g feces Interpretation <100 Severe exocrine pancreatic insufficiency 100-200 Mild to moderate exocrine pancreatic insufficiency >200 Normal Test Performed at: [facility], [address] [place] [address] Sima Torres MD,PhD,SCOTT Stool STOOL SPECIMEN / Unknown 05/10/2025 10:01 AM CDT 05/11/2025 2:57 AM CDT Sharif Marshall MD BODY FLUIDS AND STOOLS Fi nal Result [facility] [phone] [facility], [address] [place] [address] * C. DIFFICILE DETECTION (05/10/2025 10:01 AM CDT) C DIFFICILE TOXIN B QUAL NOT DETECTED NOT DETECTED [facility] Comment: This test is for use only with liquid or soft stools; performance characteristics of other clinical specimen types have not been established. This assay was performed by [employer]. The performance characteristics of this assay have been determined by [facility]. Performance characteristics refer to the analytical performance of the test. For additional information, please refer to http://education.DerbyJackpot/faq/YDA362 (This link is being provided for informational/educational purposes only.) Test Performed at: [facility] [address] [place] [address] Brandi Valverde MD Stool STOOL SPECIMEN / Unknown 05/10/2025 10:01 AM CDT 05/11/2025 2:57 AM CDT Sharif Marshall MD MICROBIOLOGY - GENERAL OR DERABLES Final Result Performing Organization Address City/[facility]/ZIP [facility] Phone Number [facility] [phone] [facility] [address] [place] [address] * GIARDIA & CRYPTOSPORIDIUM ANTIGEN (05/10/2025 10:01 AM CDT) CRYPTOSPORIDIUM AG SEE NOTE Q [facility] Comment: CRYPTOSPORIDIUM ANTIGEN, EIA Micro Number: [id number] Test Status: Final Specimen Source: Stool Specimen Quality: Adequate Cryptosporidium: Not Detected Reference Range: Not Detected NOTE: Due to intermittent shedding, one negative sample does not necessarily rule out the presence of a parasitic infection. GIARDIA AG SEE NOTE [facility] Comment: GIARDIA AG, EIA, STOOL Micro Number: [id number] Test Status: Final Specimen Source: Stool Specimen Quality: Adequate Giardia Result 1: Not Detected Reference Range: Not Detected NOTE: Due to intermittent shedding, one negative sample does not necessarily rule out the presence of a parasitic infection. Test Performed at: [place] [address] [address] Brandi Valverde Stool STOOL SPECIMEN / Unknown 05/10/2025 10:01 AM CDT 05/11/2025 2:20 AM CDT Sharif Marshall MD MICROBIOLOGY - GENERAL OR DERABLES Final Result [facility] [phone] [place] [address] [place] [address] * STOOL CULTURE W/SHIGA TOXIN (05/10/2025 10:01 AM CDT) CAMPY ANTIGEN, EIA SEE NOTE Q [facility] Comment: CAMPYLOBACTER SPP. AG,EIA Micro Number: [id number] Test Status: Final Specimen Source: Stool Specimen Quality: Adequate Campy Ag Result: Not Detected Reference Range: Not Detected E.COLI SHIGA TOXIN, EIA SEE NOTE [facility] Comment: SHIGA TOXINS, EIA W/RFL TO E.COLI O157 CULTURE Micro Number: [id number] Test Status: Final Specimen Source: Stool Specimen Quality: Adequate Shiga Toxin: Not Detected Reference Range: Not Detected STOOL CULTURE SEE NOTE [facility] Comment: SALMONELLA AND SHIGELLA, CULTURE Micro Number: [id number] Test Status: Final Specimen Source: Stool Specimen Quality: Adequate Result: No Salmonella or Shigella isolated Test Performed at: [place] [address] [place] [address] Brandi Valverde Stool STOOL SPECIMEN / Unknown 05/10/2025 10:01 AM CDT 05/11/2025 2:20 AM CDT Sharif Marshall MD MICROBIOLOGY - GENERAL OR DERABLES Final Result Performing Organization Address City/[facility] Phone Number [facility] [phone] [place] [address] [place] [address] * TRANSGLUTAMINASE IGA ANTIBODY (05/06/2025 9:19 AM CDT) TRANSGLUTAMINASE IGA AB <1.0 U/mL [facility] Comment: Value Interpretation ----- <15.0 Antibody not detected > or = 15.0 Antibody detected FASTING:NO FASTING: NO Test Performed at: [facility] [address] Montrell Candelario Blood 05/06/2025 9:19 AM CDT 05/06/2025 9:19 AM CDT Sharif Marshall MD CHEMISTRY ORDERABLES Carmel l Result Performing Organization Address City/State/ZIP [facility] Phone Number [facility] [phone] [facility] [address] [place] [address] * SEDIMENTATION RATE (05/06/2025 9:19 AM CDT) Pathologist [facility] ESR (SEDIMENTATION RATE) 7 < OR = 15 mm/h [facility] Comment: FASTING:NO FASTING: NO Test Performed at: [facility] [address] [place] [address] Spencer Mak Blood 05/06/2025 9:19 AM CDT 05/06/2025 9:19 AM CDT us Sharif Marshall MD HEMATOLOGY ORDERABLES Fin al Result [facility] [phone] [facility] [address] [place] [address] * C-REACTIVE PROTEIN (05/06/2025 9:19 AM CDT) Pathologist [facility] CRP 3.9 <8.0 mg/L [facility] Comment: FASTING:NO FASTING: NO Test Performed at: [facility] [address] [place] [address] Brandi Valverde MD Blood 05/06/2025 9:19 AM CDT 05/06/2025 9:19 AM CDT us Sharif Marshall MD CHEMISTRY ORDERABLES Carmel l Result [facility] [phone] [facility] [address] [place] [address] * IGA (05/06/2025 9:19 AM CDT) Pathologist [facility] IGA 232 47 - 310 mg/dL [facility] Comment: Test Performed at: [facility] [address] [place] [address] Brandi Valverde MD Blood 05/06/2025 9:19 AM CDT 05/06/2025 9:19 AM CDT us Sharif Marshall MD CHEMISTRY ORDERABLES Carmel l Result [facility] [phone] [facility] [address] [address] from Last 3 Months Insurance RX INFOCROSSING Medicaid Advance Directives For more information, please contact: [phone] * Full Code (Latest Code Status on File) Date Activated Date Inactivated Comments 06/17/2025 2:48 PM 06/18/2025 9:15 PM * Full Code Date Activated Date Inactivated Comments 06/17/2025 5:34 AM 06/17/2025 2:48 PM * Full Code Date Activated Date Inactivated Comments 05/24/2025 7:24 AM 05/24/2025 11:44 AM
--- OUTSIDE RECORDS SUMMARY | 2025-06-22 14:03 | XMS_ITS | Encounter Summary ---
Author Organization [facility] Address [address] [place] [address] Care Team Providers Care Sport Shoe Spike Assembler Name Role Phone Unavailable Primary Care Provider Unavailabl e Encounter Details Date Type Department Care Team (Late st Contact Info) Description 06/19/2025 External Device Data STL ABSTRACTION [...] Info) Description 07/03/2025 7:30 AM CDT Appointment [facility] [address] [place] [address] Arelis Matt, LUCAS [address] [address] Zoie Giles FNP [address] [place] [address] 07/12/2025 9:45 AM CDT Office Visit [facility] Gen Spec Surg [place] [address] [address] [place] [address] Arelis Matt NP [address] [facility] [address] [place] [address] documented as of this encounter Visit Diagnoses Not on filedocumented in this encounter
--- NOTE | 2025-06-22 14:34 | W.ED.MALEGU ---
HPI - Male Genitourinary General: Chief complaint: Urogenital-Male Stated complaint: catheter issue(6dayspostop) Time Seen by Provider: 06/22/25 14:03 Source: patient Mode of arrival: ambulatory Limitations: no limitations History of Present Illness: This patient is a 40-year-old male, with recent colon resection 6 days ago and placement of Reed catheter, presenting with mild suprapubic discomfort and cloudy urine noted in his leg bag. He reports no hematuria, clots, or penile abnormalities. He had an indwelling urinary catheter placed during surgery and expresses concern that a nocturnal erection yesterday may have affected the catheter balloon placement, although the catheter continues to drain normally. He was discharged on Flagyl and ciprofloxacin but admits he has not been taking ciprofloxacin. He is mildly tachycardic and anxious but otherwise hemodynamically stable. He denies fevers, chills, nausea, vomiting, or worsening abdominal pains. MD Complaint: other (Reed catheter issue, cloudy urine) Onset (ago): day(s) Context: recent surgery and indwelling catheter Associated symptoms: Deny dysuria, hematuria, nausea or vomiting Related Data Previous Rx's ?Medication ?Instructions ?Recorded hydrochlorothiazide 25 mg tablet 25 mg PO DAILY #90 tabs 04/01/25 lisinopril 40 mg tablet 40 mg PO QDAY #90 tabs 04/01/25 metronidazole 500 mg tablet 500 mg PO BID #14 tabs 04/01/25 carvedilol 12.5 mg tablet 12.5 mg PO Q12H #180 tabs 04/02/25 amlodipine 10 mg tablet 10 mg PO DAILY #60 tabs 04/30/25 sulfamethoxazole 800 1 tab PO BID 10 days #20 tabs 06/22/25 mg-trimethoprim 160 mg tablet (Bactrim DS) Allergies Allergy/AdvReac Type Severity Reaction Status Date / Time No Known Drug Allergies Allergy Unknown Verified 04/30/25 10:31 Review of Systems General: Reports: 10 or more systems reviewed and unremarkable except in HPI and below Const: Denies: fever(s), chills, change in appetite, change in weight or diaphoresis ENMT: Denies: throat pain or hoarseness Card: Denies: chest pain, palpitations or lightheadedness Resp: Denies: dyspnea, productive cough or wheezing GI: Denies: abdominal pain, nausea, vomiting, diarrhea, constipation, bloating, change in stool character or hematochezia : Reports: other (cloudy urine); Denies: flank pain, difficulty urinating, dysuria, urinary frequency, urinary urgency, oliguria or hematuria Musc: Denies: neck pain or back pain Skin/Breast: Denies: rash or new lesions Neuro: Denies: headache(s) or dizziness Psych: Reports: anxiety PFSH ED PFSH: Medical History BMI 45.0-49.9, adult Tobacco use disorder Diverticulosis Hypertension Family History Grandfather Congestive heart failure (CHF) Hypertension Father Hypertension Diabetes mellitus, type 2 Congestive heart failure (CHF) Social History Smoking and tobacco/nicotine status: current every day tobacco/nicotine user Alcohol intake: current Alcohol intake frequency: holidays/special occasions only Substance/Drug Use: current Substance/Drug use frequency: few times a week Lives independently: Yes Household members: spouse and children Marital status: Physical Exam Const: COMMON NORMALS: no acute distress, patient oriented x3, no limitations, alert and well nourished GENERAL APPEARANCE: cooperative, comfortable and anxious NUTRITIONAL APPEARANCE: obese ORIENTATION/CONSCIOUSNESS: Yes awake Neck/C-Spine: COMMON NORMALS: full ROM, supple, no meningeal signs and no JVD Resp: COMMON NORMALS: normal respiratory effort, No retractions, No use of accessory muscles and clear to auscultation bilaterally AUSCULTATION: clear to auscultation bilaterally, no crackles, no rales, no rhonchi and no wheezes Cardio: COMMON NORMALS: no JVD, regular rhythm, S1 normal heart sound present, S2 normal heart sound present, No gallops present (Cardio), No clicks present (Cardio), No murmurs present (Cardio), No rub (Cardio) and Peripheral pulses 2+ throughout RATE: tachycardic RHYTHM: regular rhythm HEART SOUNDS: S1 normal heart sound present and S2 normal heart sound present PERIPHERAL PULSES: Peripheral pulses 2+ throughout GI: COMMON NORMALS: Normal to inspection, nondistended, normoactive bowel sounds present, Soft to palpation, non-tender, No hepatosplenomegaly present and no masses AUSCULTATION: Yes normoactive bowel sounds PALPATION: Yes Soft to palpation, No Guarding due to palpation present (GI), No Rigid due to palpation and Yes No hepatosplenomegaly present RECTAL EXAM: Yes deferred : OTHER: Mild suprapubic tenderness to deep palpation. Indwelling Reed catheter attached to leg bag, draining cloudy yellow urine with no gross hematuria or visible clots. External exam of the penis reveals no abnormalities. Extremity: COMMON NORMALS: normal to inspection and full ROM Neuro: COMMON NORMALS: patient oriented x3, moves all extremities, no focal motor deficits and no sensory deficits noted SENSORIUM/ORIENTATION: Yes alert MENINGEAL SIGNS: Yes no meningeal signs Psych: COMMON NORMALS: mental status grossly normal, cooperative and speech normal SPEECH: Yes normal speech Skin: COMMON NORMALS: no rashes or lesions noted GENERAL SKIN EXAM: no rashes or lesions noted Course Vital Signs: Vital signs: Vital Signs Temperature 98.1 F 06/22/25 13:56 Pulse Rate 126 H 06/22/25 15:02 Respiratory Rate 20 H 06/22/25 13:56 Blood Pressure 193/153 06/22/25 15:02 Pulse Oximetry 97 06/22/25 15:02 Oxygen Delivery Me thod Room Air 06/22/25 15:02 [facility] - Male Medical Decision Making This patient is a 40-year-old male, post colon resection 1 week ago, with indwelling urinary catheter, presenting with mild suprapubic discomfort and cloudy urine. He reports nonadherence to discharge cefoxitin therapy and expresses concern about potential catheter balloon displacement after nocturnal erection. On exam, catheter is draining, no penile abnormalities are noted, and suprapubic tenderness is mild. Vital signs reveal mild tachycardia; patient is otherwise hemodynamically stable. Labs show mild leukocytosis with mild left shift; CMP is within normal limits. Urinalysis is showing persistent urinary tract infection, culture pending. Clinically consistent with catheter associated urinary tract infection, in the mild suprapubic discomfort and cloudy urine support this along with recent nonadherence to antibiotics. Catheter displacement is unlikely given normal drainage and the exam findings, and patient education is provided for reassurance. Plan is to discontinue his Cipro and start him on Bactrim as there is concern for compliance with this at home. Ensured him to continue catheter care and symptomatic management. He is informed to return with any onset of fever or chills, worsening tachycardia, hypotension, or lightheadedness, inability to pass urine or catheter halting drainage, severe worsening of pain, new hematuria or clots, redness, swelling, or discharge around the catheter site, persistent worsening of urine appearance despite antibiotics, any new penile pain, swelling, or abnormality. Lab Data 06/22/25 14:47 06/22/25 14:47 Laboratory Results WBC 13.71 10^3/uL (3.29-11.43) H 06/22/25 14:47 RBC 5.60 10^6/uL (3.85-5.65) 06/22/25 14:47 Hgb 16.20 g/dL (11.27-16.99) 06/22/25 14:47 Hct 48.1 % (37-53) 06/22/25 14:47 MCV 85.9 fl (82-101) 06/22/25 14:47 MCH 28.9 pg (27-33) 06/22/25 14:47 MCHC 33.7 g/dL (30-55) 06/22/25 14:47 RDW 13.1 % (12.1-15.1) 06/22/25 14:47 Plt Count 341 10^3/cmm (157-399) 06/22/25 14:47 MPV 8.4 fL (7.4-10.4) 06/22/25 14:47 Neut % (Auto) 71.8 % 06/22/25 14:47 Lymph % (Auto) 16.0 % 06/22/25 14:47 [place] % (Auto) 7.7 % 06/22/25 14:47 Eos % (Auto) 3.4 % 06/22/25 14:47 Baso % (Auto) 0.6 % 06/22/25 14:47 Neut # (Auto) 9.85 10^3/uL (1.8-7.7) H 06/22/25 14:47 Lymph # (Auto) 2.2 10^3/uL (0.8-4.8) 06/22/25 14:47 [place] # (Auto) 1.1 10^3/uL (0.2-0.9) H 06/22/25 14:47 Eos # (Auto) 0.5 10^3/uL (0.0-0.8) 06/22/25 14:47 Baso # (Auto) 0.1 10^3/uL (0.0-0.1) 06/22/25 14:47 Nucleated RBC % (auto) 0 % 06/22/25 14:47 Nucleated RBCs # 0.0 /100WBC 06/22/25 14:47 Sodium 137 mmol/L (136-145) 06/22/25 14:47 Potassium 3.3 mmol/L (3.5-5.1) L 06/22/25 14:47 Chloride 100 mmol/L (98-107) 06/22/25 14:47 Carbon Dioxide 25 mmol/L (22-29) 06/22/25 14:47 Anion Gap 15.3 (5-19) 06/22/25 14:47 BUN 15 mg/dL (6-20) 06/22/25 14:47 Creatinine 0.9 mg/dL (0.7-1.2) 06/22/25 14:47 GFR Calculation 93.0 mL/min (90-130) 06/22/25 14:47 Glucose 117 mg/dL (65-115) H 06/22/25 14:47 Calculated Osmolality 286 mOsm/kg (285-295) 06/22/25 14:47 Calcium 9.3 mg/dL (8.5-10.5) 06/22/25 14:47 Total Bilirubin 0.4 mg/dL (0.15-1.2) 06/22/25 14:47 AST 36 U/L (0-40) 06/22/25 14:47 ALT 53 U/L (0-41) H 06/22/25 14:47 Alkaline Phosphatase 69 U/L (40-130) 06/22/25 14:47 Total Protein 7.5 g/dL (6.6-8.7) 06/22/25 14:47 Albumin 3.6 g/dL (3.5-5.2) 06/22/25 14:47 Globulin 3.9 g/dL (1.3-4.6) 06/22/25 14:47 Urine Color Yellow (Yellow) 06/22/25 15:00 Urine Appearance Clear (CLEAR) 06/22/25 15:00 Urine pH 7.0 (5-7) 06/22/25 15:00 Ur Specific [place] 1.020 (1.005-1.030) 06/22/25 15:00 Urine Protein 2+ (Negative) A 06/22/25 15:00 Urine Glucose (UA) Negative (Normal) 06/22/25 15:00 Urine Ketones Trace (Negative) 06/22/25 15:00 Urine Blood 2+ (Negative) A 06/22/25 15:00 Urine Nitrate Negative (Negative) 06/22/25 15:00 Urine Bilirubin Negative (Negative) 06/22/25 15:00 Urine Urobilinogen 1.0 mg/dL (Negative) 06/22/25 15:00 Ur Leukocyte Esterase 2+ (Negative) A 06/22/25 15:00 Urine RBC 51-100 /hpf (0-2) H 06/22/25 15:00 Urine WBC >100 /hpf (0-5) H 06/22/25 15:00 Ur Squamous Epith Cells 0-5 /hpf (0-5) 06/22/25 15:00 Amorphous Sediment Not Reportable 06/22/25 15:00 Urine Bacteria None seen /hpf (NONE) 06/22/25 15:00 Hyaline Casts 2.87 /lpf 06/22/25 15:00 No radiology studies performed this visit Discharge Plan Discharge Patient Disposition: Home Clinical Impression: Catheter-associated urinary tract infection Qualifiers: Indwelling urinary catheter type: indwelling urethral catheter Encounter type: initial encounter Qualified Code(s): T83.511A - Infection and inflammatory reaction due to indwelling urethral catheter, initial encounter Condition: Stable Prescriptions: New sulfamethoxazole-trimethoprim [Bactrim DS] 800-160 mg tablet 1 tab PO BID 10 Days Qty: 20 0RF No Action metronidazole 500 mg tablet 500 mg PO BID Qty: 14 2RF lisinopril 40 mg tablet 40 mg PO QDAY Qty: 90 1RF hydrochlorothiazide 25 mg tablet 25 mg PO DAILY Qty: 90 1RF amlodipine 10 mg tablet 10 mg PO DAILY Qty: 60 1RF carvedilol 12.5 mg tablet 12.5 mg PO Q12H Qty: 180 1RF Rx Instructions: must administer with a meal/food Discharge Orders: Discharge ED (Routine); Ordered 06/22/25 Ordered By: Arun Montoya Referrals: Holland Kothari MD [Primary Care Provider, [facility]] Patient Instructions: Patient Portal & Tc Instructions Activity Restrictions/Additional Instructions: CAUTI Discharge Instructions Diagnosis: Catheter-associated urinary tract infection (CAUTI) in a 40-year-old male. Blood work reassuring; mild tachycardia likely secondary to anxiety, infection, or dehydration. Patient stable for discharge. Antibiotic Regimen: - Trimethoprim-sulfamethoxazole (Bactrim DS): 1 tablet (160 mg trimethoprim/800 mg sulfamethoxazole) orally every 12 hours for 10 days. This duration is consistent with FDA labeling and supported by observational data for complicated UTI/CAUTI in men. - Metronidazole: Continue as previously prescribed. Rationale for Therapy: - TMP-SMX is an appropriate empiric agent for CAUTI in men, provided local resistance rates are acceptable and there are no contraindications. - Ciprofloxacin was declined by the patient; fluoroquinolones should generally be reserved for more invasive infections due to resistance and adverse effect profiles. Supportive Care: - Hydration: Encourage increased oral fluid intake to maintain adequate urinary output and prevent crystalluria and stone formation, as TMP-SMX can cause crystalluria. - Monitor for Adverse Effects: Materials Director regarding possible side effects, including rash, gastrointestinal upset, and diarrhea. Diarrhea is common and usually resolves after discontinuation, but persistent or severe symptoms (especially watery/bloody stools) warrant prompt medical attention. - Medication Adherence: Stress the importance of completing the full antibiotic course, even if symptoms improve, to prevent recurrence and resistance. - Catheter Management: If the indwelling catheter remains, consider removal or exchange if clinically indicated, as this improves outcomes in CAUTI. Follow-Up and Warning Signs: - Advise prompt follow-up for worsening symptoms (fever, rigors, flank pain, persistent tachycardia, confusion), inability to tolerate oral intake, or signs of systemic illness. - If symptoms do not improve within 48-72 hours, or if new symptoms develop, reassessment is recommended. Additional Considerations: - Mild tachycardia may be multifactorial; ensure adequate hydration and monitor for resolution as infection improves. - Materials Director regarding avoidance of missed doses and not discontinuing antibiotics prematurely. Summary of Kumar Points: - TMP-SMX 160/800 mg BID x 10 days - Continue metronidazole as prescribed - Maintain hydration - Monitor for adverse effects - Complete full course of antibiotics - Seek medical attention for worsening or persistent symptoms These instructions reflect current consensus for CAUTI management in adult men, emphasizing evidence-based antibiotic stewardship and patient safety. Print Language: Mosotho Coding Level of Care Code ED Operator Vacuum for Mario Puckett
[2025-06-22 14:52] LABS: Hematocrit 48.1 % (37-53); Hemoglobin 16.20 g/dL (11.27-16.99); Mean Corpuscular HGB Conc 33.7 g/dL (30-55); Mean Corpuscular Hemoglobin 28.9 pg (27-33); Mean Corpuscular Volume 85.9 fl (82-101); Nucleated Red Blood Cells % 0 %; Platelet Count 341 10^3/cmm (157-399); Red Blood Count 5.60 10^6/uL (3.85-5.65); White Blood Count 13.71 10^3/uL (3.29-11.43)
[2025-06-22 15:02] VITALS: BP 193/153; PULSE 126; O2SAT 97
[2025-06-22 15:12] LABS: Alanine Aminotransferase 53 U/L (0-41); Albumin Level 3.6 g/dL (3.5-5.2); Alkaline Phosphatase 69 U/L (40-130); Anion Gap 15.3 (5-19); Aspartate Amino Transferase 36 U/L (0-40); Blood Urea Nitrogen 15 mg/dL (6-20); Calcium 9.3 mg/dL (8.5-10.5); Carbon Dioxide 25 mmol/L (22-29); Chloride 100 mmol/L (98-107); Creatinine Clr Calc Pharmacy 153.5111; Globulin 3.9 g/dL (1.3-4.6); Glucose 117 mg/dL (65-115); Osmolality Calculated 286 mOsm/kg (285-295); Potassium 3.3 mmol/L (3.5-5.1); Sodium 137 mmol/L (136-145); Total Protein 7.5 g/dL (6.6-8.7)
[2025-06-22 15:13] LABS: Glucose Urine UA Negative (Normal); Nitrate Urine Negative (Negative); Specific Gravity, Urine 1.020 (1.005-1.030)
[2025-06-22 15:15] LABS: Add Urine Microscopic? YES
[2025-06-22 15:24] LABS: UA Slide Review UA Slide Review Perf
[2025-06-22 15:44] VITALS: BP 151/80; PULSE 124; O2SAT 95
== END 2025-06-22 15:45 | disposition home or self-care (01) ==
PROVIDERS: Emergency Provider Physician Assistant; PCP Family Medicine
DX: T83.511A Infection and inflammatory reaction due to indwelling urethral catheter, initial encounter (principal); Z72.0 Tobacco use; I10 Essential (primary) hypertension; X58.XXXA Exposure to other specified factors, initial encounter
CPT/HCPCS: 80053; 81001; 85025; 87077; 87086; 87186; 99283

== ENCOUNTER 2025-09-17 09:42 | Outpatient (CLI) | payer MEDICAID, SELFPAY ==
[2025-09-17 10:30] LABS: Hematocrit 45.2 % (37-53); Hemoglobin 15.60 g/dL (11.27-16.99); Mean Corpuscular HGB Conc 34.5 g/dL (30-55); Mean Corpuscular Hemoglobin 29.0 pg (27-33); Mean Corpuscular Volume 84.0 fl (82-101); Nucleated Red Blood Cells % 0 %; Platelet Count 313 10^3/cmm (157-399); Red Blood Count 5.38 10^6/uL (3.85-5.65); White Blood Count 9.78 10^3/uL (3.29-11.43)
[2025-09-17 10:51] LABS: Estmated Average Glucose 111; Hemoglobin A1C 5.5 % (4.0-6.0)
[2025-09-17 11:09] LABS: Alanine Aminotransferase 35 U/L (0-41); Albumin Level 4.0 g/dL (3.5-5.2); Alkaline Phosphatase 60 U/L (40-130); Anion Gap 13.1 (5-19); Aspartate Amino Transferase 20 U/L (0-40); Blood Urea Nitrogen 14 mg/dL (6-20); Calcium 8.9 mg/dL (8.5-10.5); Carbon Dioxide 26 mmol/L (22-29); Chloride 102 mmol/L (98-107); Cholesterol 167 mg/dL (0-200); Globulin 3.2 g/dL (1.3-4.6); Glucose 105 mg/dL (65-115); HDL Cholesterol 36 mg/dL (60-100); Osmolality Calculated 285 mOsm/kg (285-295); Potassium 4.1 mmol/L (3.5-5.1); Sodium 137 mmol/L (136-145); Thyroid Stimulating Hormone 0.44 uIU/mL (0.27-4.20); Total Protein 7.2 g/dL (6.6-8.7); Triglycerides 128 mg/dL (0-150)
[2025-09-17 11:41] LABS: Free T4 Free Thyroxine 1.03 ng/dL (0.82-1.77)
== END 2025-09-17 09:43 | disposition home or self-care (01) ==
LOC: LAB 09:48
PROVIDERS: PCP Family Medicine; Visit Provider Nurse Practitioner Family
DX: Z00.01 Encounter for general adult medical examination with abnormal findings (principal); I10 Essential (primary) hypertension
CPT/HCPCS: 36415; 80053; 80061; 83036; 84439; 84443; 85025